=== PATIENT | male | born 1945 | race African-American/Black ===

== ENCOUNTER 2018-02-13 10:29 | Inpatient (IN) | payer BC, MEDICARE, OTHER ==
[~2018-02-13] VITALS: Ht 185.4 cm; Wt 79.7 kg
[~2018-02-13 10:29] MED LIST: AMLO10TA4 PO; ATEN25TA PO; HYDR-3972 PO; Hydralazine Hcl PO; ISOS30TA9 PO; SIMV20TA PO; SPIR25TA5 PO; TERA5CAP4 PO
[2018-02-13 11:23] LABS: BASOPHILS % (AUTO) 0.5 % (0-1); EOSINOPHILS # (AUTO) 0.3 X10'3 (0-0.9); EOSINOPHILS % (AUTO) 4.8 % (0-6); HEMOGLOBIN 8.5 g/dl (14.0-17.9); LYMPHOCYTES # (AUTO) 0.5 X10'3 (1.1-4.8); LYMPHOCYTES % (AUTO) 8.6 % (21-51); MEAN CORPUSCULAR HEMOGLOBIN 26.9 PG (27.0-31.0); MEAN CORPUSCULAR HGB CONC 32.5 % (33.0-36.5); MEAN CORPUSCULAR VOLUME 82.7 FL (78-98); MEAN PLATELET VOLUME 6.9 FL (7.4-10.4); MONOCYTES # (AUTO) 0.6 X10'3 (0-0.9); MONOCYTES % (AUTO) 10.5 % (2-12); NEUTROPHILS # (AUTO) 4.2 X10'3 (1.8-7.7); NEUTROPHILS % (AUTO) 75.6 % (42-75); PLATELET COUNT 170 X10'3 (140-440); RED BLOOD COUNT 3.15 X10'6 (4.70-6.10); WHITE BLOOD COUNT 5.5 X10'3 (4.5-11.0)
[2018-02-13 11:37] LABS: INR 1.1 INR; PARTIAL THROMBOPLASTIN TIME 29 SECONDS (22-32); PROTHROMBIN TIME 10.7 SECONDS (9.0-12.0)
[2018-02-13 11:38] LABS: ALANINE AMINOTRANSFERASE 11 U/L (12-78); ALBUMIN 3.6 G/DL (3.4-5.0); ALBUMIN/GLOBULIN RATIO 0.9 (1.1-1.5); ALKALINE PHOSPHATASE 61 IU/L (46-116); ANION GAP 15 (8-16); ASPARTATE AMINO TRANSFERASE 11 U/L (10-37); BILIRUBIN,TOTAL 0.2 MG/DL (0.1-1.0); BLOOD UREA NITROGEN 124 MG/DL (7-18); BUN/CREATININE RATIO 11.1 (5.4-32.0); CALCIUM 7.5 MG/DL (8.5-10.1); CHLORIDE 104 MMOL/L (99-107); CREATININE 11.18 MG/DL (0.60-1.10); GLUCOSE 100 MG/DL (70-104); SODIUM 134 MMOL/L (135-145); TOTAL CARBON DIOXIDE 15.1 MMOL/L (24-32); TOTAL PROTEIN 7.6 G/DL (6.4-8.2); eGFR 5 ML/MIN
[2018-02-13 11:39] LABS: POTASSIUM 6.2 MMOL/L (3.5-5.1)
[2018-02-13] MEDS ORDERED: calcium gluconate inj. 1 GM in normal saline 100ml IV soln 100 ML IV ONE (11:50)
[2018-02-13] MEDS ORDERED: sodium polystyrene sulfonate 15gm/60ml oral suspension PO ONE (11:50)
[2018-02-13] MEDS ORDERED: albuterol 2.5 MG/3 ML nebule CONTNEB PRN (12:35)
[2018-02-13] MEDS ORDERED: albuterol 2.5 MG/3 ML nebule NEB ONE (12:45)
[2018-02-13] MEDS ORDERED: morphine 4 MG/ML inj SYRINge IV PRN (13:55)
[2018-02-13] MEDS ORDERED: epoetin 20,000 units/ml inj IV ONE (13:55)
[2018-02-13] MEDS ORDERED: heparin 1,000 units/ml 10ml inj IV ONE (13:55)
[2018-02-13] MEDS ORDERED: magnesium hydroxide 30ml (MOM) UD suspension PO PRN (13:55)
[2018-02-13] MEDS ORDERED: ondansetron/PF 4mg/2ml inj IV PRN (13:55)
[2018-02-13] MEDS ORDERED: heparin 1,000unit/ml 10ml vial 10 ML IV ONE (13:55)
[2018-02-13] MEDS ORDERED: acetaminophen 325mg tablet PO PRN ×2 (13:55)
[2018-02-13] MEDS ORDERED: morphine 2 MG/ML inj. syringe IV PRN (13:55)
[2018-02-13] MEDS ORDERED: heparin 1,000 units/ml 10ml inj HE ONE (14:00)
[2018-02-13] MEDS: sodium bicarbonate (8.4%) inj. 150 MEQ in dextrose 5%-water 1,000 ML IV SCH (14:35)
[2018-02-13] MEDS ORDERED: HYDR-4069 PO (16:07)
[2018-02-13] MEDS ORDERED: CALC0.253 PO (16:27)
[2018-02-13] MEDS ORDERED: EPOE3000 SUBCUT (16:33)
[2018-02-13] MEDS ORDERED: CARV3.122 PO (16:33)
[2018-02-13] MEDS ORDERED: FERR325T28 PO (16:33)
[2018-02-13] MEDS ORDERED: SODI650T29 PO (17:40)
[2018-02-13] MEDS ORDERED: CALC667T5 PO (17:40)
[2018-02-13 19:00] VITALS: BP 187/92
[2018-02-13] MEDS: carVEDilol 3.125mg tablet PO SCH (22:57)
[2018-02-13 23:00] VITALS: BP 188/97
[2018-02-13 23:11] LABS: ALBUMIN 3.2 G/DL (3.4-5.0); ANION GAP 13 (8-16); BLOOD UREA NITROGEN 120 MG/DL (7-18); BUN/CREATININE RATIO 11.2 (5.4-32.0); CALCIUM 7.8 MG/DL (8.5-10.1); CHLORIDE 103 MMOL/L (99-107); CREATININE 10.71 MG/DL (0.60-1.10); GLUCOSE 109 MG/DL (70-104); POTASSIUM 5.4 MMOL/L (3.5-5.1); SODIUM 136 MMOL/L (135-145); TOTAL CARBON DIOXIDE 20.1 MMOL/L (24-32); eGFR 6 ML/MIN
[2018-02-13] MEDS: hydrALAZINE 25 MG tablet PO SCH (23:33)
[2018-02-14] VITALS (10 sets, daily range): BP systolic 153–199; BP diastolic 95–114
[2018-02-14 06:04] LABS: BASOPHILS % (AUTO) 0.8 % (0-1); EOSINOPHILS # (AUTO) 0.4 X10'3 (0-0.9); EOSINOPHILS % (AUTO) 6.3 % (0-6); HEMATOCRIT 24.7 % (42.0-52.0); HEMOGLOBIN 8.1 g/dl (14.0-17.9); LYMPHOCYTES # (AUTO) 0.5 X10'3 (1.1-4.8); LYMPHOCYTES % (AUTO) 9.6 % (21-51); MEAN CORPUSCULAR HEMOGLOBIN 26.9 PG (27.0-31.0); MEAN CORPUSCULAR HGB CONC 32.7 % (33.0-36.5); MEAN CORPUSCULAR VOLUME 82.3 FL (78-98); MEAN PLATELET VOLUME 7.2 FL (7.4-10.4); MONOCYTES # (AUTO) 0.7 X10'3 (0-0.9); MONOCYTES % (AUTO) 12.2 % (2-12); NEUTROPHILS % (AUTO) 71.1 % (42-75); PLATELET COUNT 161 X10'3 (140-440); RED CELL DISTRIBUTION WIDTH 15.4 % (11.5-14.5); WHITE BLOOD COUNT 5.7 X10'3 (4.5-11.0)
[2018-02-14 06:23] LABS: ALANINE AMINOTRANSFERASE 9 U/L (12-78); ALBUMIN 3.1 G/DL (3.4-5.0); ALBUMIN/GLOBULIN RATIO 0.8 (1.1-1.5); ALKALINE PHOSPHATASE 47 IU/L (46-116); ANION GAP 14 (8-16); ASPARTATE AMINO TRANSFERASE 11 U/L (10-37); BILIRUBIN,TOTAL 0.3 MG/DL (0.1-1.0); BLOOD UREA NITROGEN 119 MG/DL (7-18); BUN/CREATININE RATIO 11.4 (5.4-32.0); CALCIUM 7.4 MG/DL (8.5-10.1); CHLORIDE 103 MMOL/L (99-107); CREATININE 10.42 MG/DL (0.60-1.10); GLUCOSE 109 MG/DL (70-104); MAGNESIUM 1.5 MG/DL (1.5-2.4); PHOSPHORUS 6.5 MG/DL (2.3-4.5); POTASSIUM 5.3 MMOL/L (3.5-5.1); SODIUM 137 MMOL/L (135-145); TOTAL CARBON DIOXIDE 20.3 MMOL/L (24-32); TOTAL PROTEIN 6.8 G/DL (6.4-8.2); eGFR 6 ML/MIN
[2018-02-14] MEDS: pantoprazole 40mg Tablet.DR PO SCH (07:30)
[2018-02-14] MEDS: carVEDilol 3.125mg tablet PO SCH ×2 (07:33→19:04)
[2018-02-14] MEDS: ferrous sulfate 325mg tablet PO SCH (07:33)
[2018-02-14] MEDS: isosorbide dinitrate 30mg tablet PO SCH ×3 (07:33→19:03)
[2018-02-14] MEDS: calcium acetate 667mg (PhosLO) capsule PO SCH ×3 (07:33→18:40)
[2018-02-14] MEDS: hydrALAZINE 25 MG tablet PO SCH ×2 (07:35→16:16)
[2018-02-14] MEDS: sodium bicarbonate (8.4%) inj. 150 MEQ in dextrose 5%-water 1,000 ML IV SCH (07:52)
[2018-02-14] MEDS ORDERED: CALCIUM ACETATE PO SCH (08:00)
[2018-02-14] MEDS ORDERED: carVEDilol 3.125mg tablet PO SCH (08:00)
[2018-02-14] MEDS ORDERED: spironolactone 25 MG tablet PO SCH (08:00)
[2018-02-14] MEDS ORDERED: LIDOcaine 1%/PF 5ML 10 MG/ML VIAL SQ ONE (08:30)
[2018-02-14] MEDS ORDERED: fentaNYL/PF 50MCG/1 ML 2ML syringe IV PRN (08:30)
[2018-02-14] MEDS ORDERED: midazolam 2 mg/2 ml injection IV PRN (08:30)
[2018-02-14] MEDS ORDERED: heparin 1,000 units/ml 10ml inj HE ONE ×2 (08:30→16:00)
[2018-02-14] MEDS ORDERED: heparin 1,000 units/ml 10ml inj ICATH ONE (08:30)
[2018-02-14] MEDS ORDERED: heparin 1,000unit/ml 10ml vial 10 ML ONE (08:31)
[2018-02-14] MEDS ORDERED: LIDOcaine 1% (10mg/ml) 2ml vial ONE (08:31)
[2018-02-14] MEDS ORDERED: fentaNYL/PF 50MCG/1 ML 2ML syringe ONE (09:01)
[2018-02-14] MEDS ORDERED: midazolam 2 mg/2 ml injection ONE (09:01)
[2018-02-14] MEDS: calcitriol 0.25mcg capsule PO SCH (13:38)
[2018-02-14] MEDS ORDERED: heparin 1,000 units/ml 10ml inj IV ONE (16:00)
[2018-02-14] MEDS ORDERED: heparin 1,000unit/ml 10ml vial 10 ML IV ONE (16:00)
[2018-02-14] MEDS ORDERED: epoetin 20,000 units/ml inj IV ONE (16:00)
[2018-02-14] MEDS: terazosin 5mg capsule PO SCH (21:51)
[2018-02-15] MEDS: hydrALAZINE 25 MG tablet PO SCH ×4 (00:47→23:26)
[2018-02-15 03:00] VITALS: BP 150/93
[2018-02-15 05:16] LABS: BASOPHILS % (AUTO) 0.4 % (0-1); EOSINOPHILS # (AUTO) 0.3 X10'3 (0-0.9); EOSINOPHILS % (AUTO) 5.1 % (0-6); HEMOGLOBIN 8.6 g/dl (14.0-17.9); LYMPHOCYTES # (AUTO) 0.7 X10'3 (1.1-4.8); LYMPHOCYTES % (AUTO) 10.4 % (21-51); MEAN CORPUSCULAR HEMOGLOBIN 27.3 PG (27.0-31.0); MEAN CORPUSCULAR HGB CONC 33.1 % (33.0-36.5); MEAN CORPUSCULAR VOLUME 82.4 FL (78-98); MEAN PLATELET VOLUME 7.1 FL (7.4-10.4); MONOCYTES # (AUTO) 0.9 X10'3 (0-0.9); MONOCYTES % (AUTO) 14.2 % (2-12); NEUTROPHILS # (AUTO) 4.6 X10'3 (1.8-7.7); NEUTROPHILS % (AUTO) 69.9 % (42-75); PLATELET COUNT 160 X10'3 (140-440); RED BLOOD COUNT 3.16 X10'6 (4.70-6.10); WHITE BLOOD COUNT 6.6 X10'3 (4.5-11.0)
[2018-02-15 05:54] LABS: ALANINE AMINOTRANSFERASE 10 U/L (12-78); ALBUMIN 3.2 G/DL (3.4-5.0); ALBUMIN/GLOBULIN RATIO 0.8 (1.1-1.5); ALKALINE PHOSPHATASE 45 IU/L (46-116); ANION GAP 11 (8-16); ASPARTATE AMINO TRANSFERASE 12 U/L (10-37); BILIRUBIN,TOTAL 0.3 MG/DL (0.1-1.0); BLOOD UREA NITROGEN 72 MG/DL (7-18); BUN/CREATININE RATIO 9.4 (5.4-32.0); CALCIUM 7.8 MG/DL (8.5-10.1); CHLORIDE 98 MMOL/L (99-107); CREATININE 7.66 MG/DL (0.60-1.10); GLUCOSE 94 MG/DL (70-104); MAGNESIUM 1.5 MG/DL (1.5-2.4); PHOSPHORUS 4.7 MG/DL (2.3-4.5); POTASSIUM 4.9 MMOL/L (3.5-5.1); SODIUM 134 MMOL/L (135-145); TOTAL CARBON DIOXIDE 25.3 MMOL/L (24-32); eGFR 9 ML/MIN
[2018-02-15 06:00] VITALS: BP 164/100
[2018-02-15] MEDS: pantoprazole 40mg Tablet.DR PO SCH (08:13)
[2018-02-15] MEDS: calcium acetate 667mg (PhosLO) capsule PO SCH ×3 (08:14→18:00)
[2018-02-15] MEDS: carVEDilol 3.125mg tablet PO SCH ×2 (08:14→20:30)
[2018-02-15] MEDS: ferrous sulfate 325mg tablet PO SCH (08:14)
[2018-02-15] MEDS: calcitriol 0.25mcg capsule PO SCH (08:14)
[2018-02-15] MEDS: isosorbide dinitrate 30mg tablet PO SCH ×3 (08:14→20:30)
[2018-02-15] MEDS ORDERED: heparin 1,000unit/ml 10ml vial 10 ML IV ONE (09:01)
[2018-02-15] MEDS ORDERED: normal saline 1000ml 250 ML IV PRN (09:01)
[2018-02-15] MEDS ORDERED: heparin 1,000 units/ml 10ml inj HE ONE ×2 (09:05)
[2018-02-15 11:00] VITALS: BP 146/91
[2018-02-15 15:00] VITALS: BP 151/97
[2018-02-15 18:00] VITALS: BP 140/98
[2018-02-15] MEDS: terazosin 5mg capsule PO SCH (20:30)
[2018-02-15 22:00] VITALS: BP 131/96
[2018-02-16 02:00] VITALS: BP 140/86
[2018-02-16 05:46] LABS: BASOPHILS % (AUTO) 0.7 % (0-1); EOSINOPHILS # (AUTO) 0.5 X10'3 (0-0.9); HEMATOCRIT 26.4 % (42.0-52.0); HEMOGLOBIN 8.7 g/dl (14.0-17.9); LYMPHOCYTES # (AUTO) 0.7 X10'3 (1.1-4.8); LYMPHOCYTES % (AUTO) 11.1 % (21-51); MEAN CORPUSCULAR HEMOGLOBIN 27.4 PG (27.0-31.0); MEAN PLATELET VOLUME 7.1 FL (7.4-10.4); MONOCYTES # (AUTO) 1.1 X10'3 (0-0.9); MONOCYTES % (AUTO) 16.4 % (2-12); NEUTROPHILS # (AUTO) 4.3 X10'3 (1.8-7.7); NEUTROPHILS % (AUTO) 64.8 % (42-75); PLATELET COUNT 167 X10'3 (140-440); RED BLOOD COUNT 3.18 X10'6 (4.70-6.10); RED CELL DISTRIBUTION WIDTH 15.2 % (11.5-14.5); WHITE BLOOD COUNT 6.6 X10'3 (4.5-11.0)
[2018-02-16 06:00] VITALS: BP 140/88
[2018-02-16 06:18] LABS: ALANINE AMINOTRANSFERASE 10 U/L (12-78); ALBUMIN 3.2 G/DL (3.4-5.0); ALBUMIN/GLOBULIN RATIO 0.8 (1.1-1.5); ALKALINE PHOSPHATASE 54 IU/L (46-116); ANION GAP 9 (8-16); ASPARTATE AMINO TRANSFERASE 12 U/L (10-37); BILIRUBIN,TOTAL 0.3 MG/DL (0.1-1.0); BLOOD UREA NITROGEN 49 MG/DL (7-18); BUN/CREATININE RATIO 7.2 (5.4-32.0); CALCIUM 8.6 MG/DL (8.5-10.1); CHLORIDE 98 MMOL/L (99-107); CREATININE 6.77 MG/DL (0.60-1.10); GLUCOSE 98 MG/DL (70-104); MAGNESIUM 1.7 MG/DL (1.5-2.4); PHOSPHORUS 4.6 MG/DL (2.3-4.5); POTASSIUM 4.3 MMOL/L (3.5-5.1); SODIUM 134 MMOL/L (135-145); TOTAL CARBON DIOXIDE 26.9 MMOL/L (24-32); eGFR 10 ML/MIN
[2018-02-16] MEDS: carVEDilol 3.125mg tablet PO SCH (07:51)
[2018-02-16] MEDS: isosorbide dinitrate 30mg tablet PO SCH ×2 (07:51→13:23)
[2018-02-16] MEDS: calcium acetate 667mg (PhosLO) capsule PO SCH ×2 (07:51→13:23)
[2018-02-16] MEDS: pantoprazole 40mg Tablet.DR PO SCH (07:51)
[2018-02-16] MEDS: calcitriol 0.25mcg capsule PO SCH (07:51)
[2018-02-16] MEDS: hydrALAZINE 25 MG tablet PO SCH (07:51)
[2018-02-16] MEDS: ferrous sulfate 325mg tablet PO SCH (07:51)
[2018-02-16 09:08] LABS: HBSAG SCREEN Negative (Negative)
[2018-02-16 11:00] VITALS: BP 140/88
== END 2018-02-16 13:25 | disposition home or self-care (01) | DRG 675 ==
LOC: ER 10:29 → ED HOLD 13:55 → PCU 3S 16:45
PROVIDERS: ADMIT Internal Medicine Critical Care Medicine; ATTEND Internal Medicine Critical Care Medicine
PROC: 5A1D70Z Performance of Urinary Filtration, Intermittent, Less than 6 Hours Per Day (ICD-10-PCS; principal; 2018-02-14)
PROC: 0JH63XZ Insertion of Tunneled Vascular Access Device into Chest Subcutaneous Tissue and Fascia, Percutaneous Approach (ICD-10-PCS; 2018-02-14)
PROC: 02HV33Z Insertion of Infusion Device into Superior Vena Cava, Percutaneous Approach (ICD-10-PCS; 2018-02-14)
PROC: B518ZZA Fluoroscopy of Superior Vena Cava, Guidance (ICD-10-PCS; 2018-02-14)
PROC: B548ZZA Ultrasonography of Superior Vena Cava, Guidance (ICD-10-PCS; 2018-02-14)
PROC: 5A1D70Z Performance of Urinary Filtration, Intermittent, Less than 6 Hours Per Day (ICD-10-PCS; 2018-02-15)
DX: N18.6 End stage renal disease (principal); E87.5 Hyperkalemia; K74.60 Unspecified cirrhosis of liver; E78.5 Hyperlipidemia, unspecified; E83.51 Hypocalcemia; I49.9 Cardiac arrhythmia, unspecified; Z82.49 Family history of ischemic heart disease and other diseases of the circulatory system; Z99.2 Dependence on renal dialysis; Z86.19 Personal history of other infectious and parasitic diseases; Z88.8 Allergy status to other drugs, medicaments and biological substances; Z79.899 Other long term (current) drug therapy
CPT/HCPCS: 36415; 36558; 71045; 76937; 77001; 80048; 80053; 83735; 84100; 84484; 85025; 85610; 85730; 87040; 87070; 87340; 93005; 93930; 93970; 94640; 94760; 99152; 99153; A9270; C1750; C1894; G0257; G0378; J0610; J0885; J1644; J2150; J2250; J3010; J3490; J7030

== ENCOUNTER 2018-08-04 06:53 | Day surgery (SDC) | payer OTHER, MEDICARE ==
[~2018-08-04] VITALS: Ht 182.9 cm; Wt 85.3 kg
[~2018-08-04 06:53] MED LIST changes: -AMLO10TA4 PO; -ATEN25TA PO; +CALC0.253 PO; +CALC667T5 PO; +CARV3.122 PO; +FERR325T28 PO; -HYDR-3972 PO; +HYDR-4069 PO; -Hydralazine Hcl PO; -SIMV20TA PO; -SPIR25TA5 PO
[2018-08-04] MEDS ORDERED: LIDOcaine 1%/PF 5ML 10 MG/ML VIAL ONE (07:17)
[2018-08-04] MEDS ORDERED: SODI650T29 PO (07:36)
[2018-08-04] MEDS ORDERED: AMLO10TA PO (07:36)
[2018-08-04] MEDS ORDERED: MULTIVITAMIN PO (07:36)
[2018-08-04] MEDS ORDERED: CARV6.253 PO (07:36)
[2018-08-04] MEDS ORDERED: CALC667C5 PO (07:36)
[2018-08-04 09:25] VITALS: BP 142/87
[2018-08-04 09:30] VITALS: BP 148/88
[2018-08-04 10:00] VITALS: BP 148/88
[2018-08-04 10:41] VITALS: BP 138/97
== END 2018-08-04 10:00 | disposition home or self-care (01) ==
LOC: SSTAY O 06:53
PROVIDERS: ATTEND Radiology Diagnostic Radiology
DX: Z49.02 Encounter for fitting and adjustment of peritoneal dialysis catheter (principal); K74.60 Unspecified cirrhosis of liver; G47.30 Sleep apnea, unspecified; I12.9 Hypertensive chronic kidney disease with stage 1 through stage 4 chronic kidney disease, or unspecified chronic kidney disease; N18.9 Chronic kidney disease, unspecified; Z88.8 Allergy status to other drugs, medicaments and biological substances; Z86.19 Personal history of other infectious and parasitic diseases
CPT/HCPCS: 36589; J2001

== ENCOUNTER 2018-11-29 15:52 | Inpatient (IN) | payer MEDICARE, OTHER ==
[~2018-11-29] VITALS: Ht 182.9 cm; Wt 86.4 kg
[~2018-11-29 15:52] MED LIST changes: +AMLO10TA PO; +CALC667C5 PO; -CALC667T5 PO; -CARV3.122 PO; +CARV6.253 PO; +MULTIVITAMIN PO; +SODI650T29 PO
--- NOTE | 2018-11-29 16:09 | NUR ---
EKG 1552
[2018-11-29 16:35] LABS: BASOPHILS # (AUTO) 0.1 X10'3 (0-0.2); BASOPHILS % (AUTO) 0.9 % (0-1); EOSINOPHILS # (AUTO) 0.4 X10'3 (0-0.9); EOSINOPHILS % (AUTO) 4.5 % (0-6); HEMOGLOBIN 7.6 g/dl (14.0-17.9); LYMPHOCYTES # (AUTO) 0.9 X10'3 (1.1-4.8); MEAN CORPUSCULAR HEMOGLOBIN 29.4 PG (27.0-31.0); MEAN CORPUSCULAR HGB CONC 34.8 g/dL (33.0-36.5); MEAN CORPUSCULAR VOLUME 84.5 FL (78-98); MEAN PLATELET VOLUME 6.8 FL (7.4-10.4); MONOCYTES # (AUTO) 1.2 X10'3 (0-0.9); MONOCYTES % (AUTO) 13.7 % (2-12); NEUTROPHILS # (AUTO) 6.1 X10'3 (1.8-7.7); NEUTROPHILS % (AUTO) 70.9 % (42-75); PLATELET COUNT 186 X10'3 (140-440); RED BLOOD COUNT 2.59 X10'6 (4.70-6.10); RED CELL DISTRIBUTION WIDTH 16.6 % (11.5-14.5); WHITE BLOOD COUNT 8.6 X10'3 (4.5-11.0)
[2018-11-29 16:39] LABS: HEMATOCRIT 21.9 % (42.0-52.0)
[2018-11-29 16:49] LABS: ALANINE AMINOTRANSFERASE 22 U/L (12-78); ALBUMIN 2.8 G/DL (3.4-5.0); ALBUMIN/GLOBULIN RATIO 0.7 (1.1-1.5); ALKALINE PHOSPHATASE 65 IU/L (46-116); ANION GAP 12 (8-16); ASPARTATE AMINO TRANSFERASE 20 U/L (10-37); BILIRUBIN,TOTAL 0.4 MG/DL (0.1-1.0); BLOOD UREA NITROGEN 98 MG/DL (7-18); CHLORIDE 99 MMOL/L (99-107); GLUCOSE 121 MG/DL (70-104); POTASSIUM 4.2 MMOL/L (3.5-5.1); SODIUM 138 MMOL/L (135-145); TOTAL CARBON DIOXIDE 27.5 MMOL/L (24-32)
[2018-11-29 16:52] LABS: BUN/CREATININE RATIO 4.9 (5.4-32.0); eGFR 3 ML/MIN
[2018-11-29 16:53] LABS: CREATININE 20.02 MG/DL (0.60-1.10)
[2018-11-29 16:54] LABS: TROPONIN I < 0.04 NG/ML (0.0-0.05)
[2018-11-29] MEDS ORDERED: FURO80TA3 PO (18:19)
[2018-11-29] MEDS ORDERED: perit dialysis 13 & dext 2.5% 6,000 ML IP PRN (19:15)
[2018-11-29] MEDS ORDERED: acetaminophen 325mg tablet PO PRN (19:25)
[2018-11-29] MEDS ORDERED: ondansetron/PF 4mg/2ml inj IV PRN (19:25)
[2018-11-29 20:06] LABS: OCCULT BLOOD STOOL POSITIVE (Neg)
[2018-11-29] MEDS: isosorbide dinitrate 30mg tablet PO SCH (20:23)
[2018-11-29] MEDS: calcium acetate 667mg (PhosLO) capsule PO SCH ×2 (20:23→20:58)
[2018-11-29] MEDS: heparin, porcine 5000 units/ml vial SQ SCH (20:24)
[2018-11-29] MEDS: carvedilol 6.25mg tablet PO SCH (20:24)
[2018-11-30 03:00] VITALS: BP 169/58
[2018-11-30] MEDS: hydrALAZINE 25 MG tablet PO SCH ×4 (04:27→23:45)
[2018-11-30 06:00] VITALS: BP 147/91
[2018-11-30 06:09] LABS: BASOPHILS # (AUTO) 0.1 X10'3 (0-0.2); BASOPHILS % (AUTO) 1.1 % (0-1); EOSINOPHILS # (AUTO) 0.4 X10'3 (0-0.9); EOSINOPHILS % (AUTO) 4.7 % (0-6); HEMATOCRIT 23.3 % (42.0-52.0); LYMPHOCYTES % (AUTO) 11.9 % (21-51); MEAN CORPUSCULAR HEMOGLOBIN 28.5 PG (27.0-31.0); MEAN CORPUSCULAR HGB CONC 34.2 g/dL (33.0-36.5); MEAN CORPUSCULAR VOLUME 83.5 FL (78-98); MEAN PLATELET VOLUME 6.7 FL (7.4-10.4); MONOCYTES # (AUTO) 1.2 X10'3 (0-0.9); NEUTROPHILS # (AUTO) 5.9 X10'3 (1.8-7.7); NEUTROPHILS % (AUTO) 68.3 % (42-75); PLATELET COUNT 197 X10'3 (140-440); RED BLOOD COUNT 2.79 X10'6 (4.70-6.10); WHITE BLOOD COUNT 8.6 X10'3 (4.5-11.0)
[2018-11-30 06:22] LABS: ALANINE AMINOTRANSFERASE 22 U/L (12-78); ALBUMIN 2.8 G/DL (3.4-5.0); ALBUMIN/GLOBULIN RATIO 0.7 (1.1-1.5); ALKALINE PHOSPHATASE 62 IU/L (46-116); ANION GAP 14 (8-16); ASPARTATE AMINO TRANSFERASE 18 U/L (10-37); BILIRUBIN,TOTAL 0.4 MG/DL (0.1-1.0); BLOOD UREA NITROGEN 95 MG/DL (7-18); BUN/CREATININE RATIO 4.8 (5.4-32.0); CALCIUM 8.4 MG/DL (8.5-10.1); CHLORIDE 99 MMOL/L (99-107); CREATININE 19.99 MG/DL (0.60-1.10); GLUCOSE 113 MG/DL (70-104); MAGNESIUM 2.3 MG/DL (1.5-2.4); PHOSPHORUS 5.7 MG/DL (2.3-4.5); POTASSIUM 3.9 MMOL/L (3.5-5.1); SODIUM 140 MMOL/L (135-145); TOTAL CARBON DIOXIDE 26.8 MMOL/L (24-32); TOTAL PROTEIN 7.1 G/DL (6.4-8.2); eGFR 3 ML/MIN
[2018-11-30 07:46] LABS: ANISOCYTOSIS 1+; NUCLEATED RED BLOOD CELLS 1 /100WBC (0-0); PLATELET ESTIMATE NORMAL; TOTAL CELLS COUNTED 100
[2018-11-30 07:47] LABS: POIKILOCYTOSIS 1+; POLYCHROMASIA 1+
[2018-11-30] MEDS ORDERED: [UNRECOGNIZED DRUG - OTHER] PO SCH (08:00)
[2018-11-30] MEDS ORDERED: non-formulary drug (Amlodipine Besylate 1 TABLET) PO SCH (08:00)
[2018-11-30] MEDS: furosemide 40mg tablet PO SCH (10:01)
[2018-11-30] MEDS: heparin, porcine 5000 units/ml vial SQ SCH ×2 (10:02→20:06)
[2018-11-30] MEDS: amLODIPine 5mg tablet PO SCH (10:02)
[2018-11-30] MEDS: carvedilol 6.25mg tablet PO SCH ×2 (10:02→20:06)
[2018-11-30] MEDS: folic acid/vitamin B complex w/vitamin C 0.8mg tablet PO SCH (10:02)
[2018-11-30] MEDS: calcium acetate 667mg (PhosLO) capsule PO SCH ×3 (10:02→20:06)
[2018-11-30] MEDS: isosorbide dinitrate 30mg tablet PO SCH ×3 (10:04→20:06)
[2018-11-30 11:00] VITALS: BP 128/78
[2018-11-30] MEDS: JUVEN Shake w/Arg/Glut/Ca2+Bmb (Juven 19.3gm) pkt 240ml PO SCH ×2 (13:00→18:00)
[2018-11-30] MEDS ORDERED: HEPARIN IP PRN (14:36)
[2018-11-30] MEDS ORDERED: PERIT DIALYSIS IP PRN (14:36)
[2018-11-30] MEDS ORDERED: DEXT IP PRN (14:36)
[2018-11-30] MEDS ORDERED: perit dialysis 13 & dext 2.5% 6,000 ML IP PRN (14:40)
[2018-11-30 15:00] VITALS: BP 116/72
[2018-11-30 18:00] VITALS: BP 123/76
--- NOTE | 2018-11-30 18:30 | NUR ---
Patient in room PCU 3020. I have received report from Georgina MANCINI and had the opportunity to ask questions and assume patient care.
[2018-11-30 22:00] VITALS: BP 146/88
[2018-12-01 02:00] VITALS: BP 132/65
[2018-12-01 06:00] VITALS: BP 144/87
[2018-12-01 06:12] LABS: BASOPHILS # (AUTO) 0.1 X10'3 (0-0.2); BASOPHILS % (AUTO) 0.9 % (0-1); EOSINOPHILS # (AUTO) 0.3 X10'3 (0-0.9); EOSINOPHILS % (AUTO) 3.8 % (0-6); HEMATOCRIT 23.5 % (42.0-52.0); HEMOGLOBIN 7.9 g/dl (14.0-17.9); LYMPHOCYTES # (AUTO) 1.2 X10'3 (1.1-4.8); LYMPHOCYTES % (AUTO) 13.4 % (21-51); MEAN CORPUSCULAR HEMOGLOBIN 28.5 PG (27.0-31.0); MEAN CORPUSCULAR HGB CONC 33.8 g/dL (33.0-36.5); MEAN CORPUSCULAR VOLUME 84.3 FL (78-98); MEAN PLATELET VOLUME 6.9 FL (7.4-10.4); MONOCYTES # (AUTO) 1.2 X10'3 (0-0.9); MONOCYTES % (AUTO) 13.4 % (2-12); NEUTROPHILS # (AUTO) 6.1 X10'3 (1.8-7.7); NEUTROPHILS % (AUTO) 68.5 % (42-75); PLATELET COUNT 192 X10'3 (140-440); RED BLOOD COUNT 2.78 X10'6 (4.70-6.10); WHITE BLOOD COUNT 8.9 X10'3 (4.5-11.0)
[2018-12-01 06:15] LABS: ALANINE AMINOTRANSFERASE 20 U/L (12-78); ALBUMIN 2.6 G/DL (3.4-5.0); ALBUMIN/GLOBULIN RATIO 0.6 (1.1-1.5); ALKALINE PHOSPHATASE 61 IU/L (46-116); ANION GAP 15 (8-16); ASPARTATE AMINO TRANSFERASE 19 U/L (10-37); BILIRUBIN,TOTAL 0.4 MG/DL (0.1-1.0); BLOOD UREA NITROGEN 96 MG/DL (7-18); BUN/CREATININE RATIO 4.9 (5.4-32.0); CALCIUM 8.6 MG/DL (8.5-10.1); CHLORIDE 99 MMOL/L (99-107); CREATININE 19.69 MG/DL (0.60-1.10); GLUCOSE 112 MG/DL (70-104); MAGNESIUM 2.2 MG/DL (1.5-2.4); PHOSPHORUS 6.4 MG/DL (2.3-4.5); POTASSIUM 3.8 MMOL/L (3.5-5.1); SODIUM 140 MMOL/L (135-145); TOTAL CARBON DIOXIDE 26.4 MMOL/L (24-32); TOTAL PROTEIN 6.8 G/DL (6.4-8.2); eGFR 3 ML/MIN
--- NOTE | 2018-12-01 06:24 | NUR ---
Problems reprioritized. Patient report given, questions answered & plan of care reviewed with Clau MANCINI.
--- NOTE | 2018-12-01 06:36 | NUR ---
Patient in room PCU 3020. I have received report from Xi MANCINI and had the opportunity to ask questions and assume patient care. Pt is in bed sleeping, all needs met at this time.
[2018-12-01] MEDS: JUVEN Shake w/Arg/Glut/Ca2+Bmb (Juven 19.3gm) pkt 240ml PO SCH ×2 (08:00→13:00)
[2018-12-01] MEDS: calcium acetate 667mg (PhosLO) capsule PO SCH ×2 (08:00→12:47)
[2018-12-01] MEDS: amLODIPine 5mg tablet PO SCH (08:00)
[2018-12-01] MEDS: carvedilol 6.25mg tablet PO SCH (08:01)
[2018-12-01] MEDS: folic acid/vitamin B complex w/vitamin C 0.8mg tablet PO SCH (08:01)
[2018-12-01] MEDS: isosorbide dinitrate 30mg tablet PO SCH ×2 (08:01→12:47)
[2018-12-01] MEDS: furosemide 40mg tablet PO SCH (08:01)
[2018-12-01] MEDS: hydrALAZINE 25 MG tablet PO SCH ×2 (08:01→16:17)
[2018-12-01] MEDS: heparin, porcine 5000 units/ml vial SQ SCH (08:02)
[2018-12-01 11:00] VITALS: BP 126/71
[2018-12-01 13:18] LABS: % IRON SATURATION 49 % (11-46); IRON 89 UG/DL (53-167); TOTAL IRON BINDING CAPACITY 182 UG/DL (259-388)
[2018-12-01 13:45] LABS: FERRITIN 719 NG/ML (26-388)
[2018-12-01 15:00] VITALS: BP 130/78
[2018-12-01] MEDS ORDERED: PANT-47 PO (15:52)
--- NOTE | 2018-12-01 17:03 | NUR ---
Pt is stable for d/c per md orders, discharge instructions reviewed with Patient, all questions answered, printed prescription for new medication signed by MD given to pt so he can get refilled at the NH, all home medication from pharmacy returned to pt, PIV d/c'ed and clean dry dressing in place, pt has discharged to home @ 1450, walked down with staff member, pt will be driving self home, all belongings with pt at time of discharge. Addendum: 12/01/18 at 1710 by Mele Garcia RN Correction to time: PT discharged @1650
== END 2018-12-01 16:53 | disposition home or self-care (01) | DRG 682 ==
LOC: ER 15:52 → UNDOADMIN 11-30 02:59 → PCU 3S 11-30 02:59
PROVIDERS: ATTEND Internal Medicine Critical Care Medicine
PROC: 5A1D70Z Performance of Urinary Filtration, Intermittent, Less than 6 Hours Per Day (ICD-10-PCS; principal; 2018-11-29)
PROC: 5A1D70Z Performance of Urinary Filtration, Intermittent, Less than 6 Hours Per Day (ICD-10-PCS; 2018-11-30)
DX: I12.0 Hypertensive chronic kidney disease with stage 5 chronic kidney disease or end stage renal disease (principal); N18.6 End stage renal disease; D64.9 Anemia, unspecified; R19.5 Other fecal abnormalities; B19.20 Unspecified viral hepatitis C without hepatic coma; K74.60 Unspecified cirrhosis of liver; Z99.2 Dependence on renal dialysis; Z88.8 Allergy status to other drugs, medicaments and biological substances
CPT/HCPCS: 36415; 80053; 82272; 82728; 83540; 83550; 83735; 84100; 84484; 85025; 86885; 86900; 86901; 87081; 90935; 93005; 99285; E1594; G0257; G0378; J1644

== ENCOUNTER 2018-12-01 18:27 | Inpatient (IN) | payer MEDICARE, OTHER ==
[~2018-12-01] VITALS: Ht 182.9 cm; Wt 89.3 kg
[~2018-12-01 18:27] MED LIST changes: +FURO80TA3 PO; +PANT-47 PO
--- NOTE | 2018-12-01 18:46 | NUR ---
Dr Rivas notified of how sad the patient appears to me.
[2018-12-01 19:28] LABS: BASOPHILS # (AUTO) 0.1 X10'3 (0-0.2); BASOPHILS % (AUTO) 0.9 % (0-1); EOSINOPHILS # (AUTO) 0.4 X10'3 (0-0.9); HEMATOCRIT 22.5 % (42.0-52.0); HEMOGLOBIN 7.4 g/dl (14.0-17.9); LYMPHOCYTES # (AUTO) 0.9 X10'3 (1.1-4.8); LYMPHOCYTES % (AUTO) 9.9 % (21-51); MEAN CORPUSCULAR HEMOGLOBIN 28.1 PG (27.0-31.0); MEAN CORPUSCULAR HGB CONC 33.1 g/dL (33.0-36.5); MEAN PLATELET VOLUME 7.1 FL (7.4-10.4); MONOCYTES # (AUTO) 1.2 X10'3 (0-0.9); MONOCYTES % (AUTO) 12.5 % (2-12); NEUTROPHILS # (AUTO) 6.9 X10'3 (1.8-7.7); NEUTROPHILS % (AUTO) 72.7 % (42-75); PLATELET COUNT 197 X10'3 (140-440); RED BLOOD COUNT 2.64 X10'6 (4.70-6.10); RED CELL DISTRIBUTION WIDTH 16.3 % (11.5-14.5); WHITE BLOOD COUNT 9.4 X10'3 (4.5-11.0)
[2018-12-01 19:38] LABS: ALANINE AMINOTRANSFERASE 19 U/L (12-78); ALBUMIN 2.6 G/DL (3.4-5.0); ALBUMIN/GLOBULIN RATIO 0.6 (1.1-1.5); ALKALINE PHOSPHATASE 63 IU/L (46-116); ANION GAP 12 (8-16); ASPARTATE AMINO TRANSFERASE 21 U/L (10-37); BILIRUBIN,TOTAL 0.4 MG/DL (0.1-1.0); BLOOD UREA NITROGEN 104 MG/DL (7-18); CALCIUM 8.3 MG/DL (8.5-10.1); CHLORIDE 97 MMOL/L (99-107); GLUCOSE 140 MG/DL (70-104); POTASSIUM 4.2 MMOL/L (3.5-5.1); SODIUM 136 MMOL/L (135-145); TOTAL CARBON DIOXIDE 26.7 MMOL/L (24-32); TOTAL PROTEIN 6.7 G/DL (6.4-8.2)
[2018-12-01 19:42] LABS: BUN/CREATININE RATIO 5.1 (5.4-32.0); CREATININE 20.55 MG/DL (0.60-1.10); eGFR 3 ML/MIN
[2018-12-01 20:34] LABS: TOTAL CELLS COUNTED 100
[2018-12-01 20:35] LABS: BANDS% (MANUAL) 1 % (0-10); LYMPHOCYTES % (MANUAL) 9 % (21-51); NEUTROPHILS % (MANUAL) 79 % (42-75)
[2018-12-01 20:36] LABS: ANISOCYTOSIS 1+; BASOPHILS % (MANUAL) 1 % (0-1); EOSINOPHILS % (MANUAL) 1 % (0-6); METAMYLEOCYTES% (MANUAL) 2 % (0-0); MONOCYTES % (MANUAL) 7 % (2-12); NUCLEATED RED BLOOD CELLS 1 /100WBC (0-0); PLATELET ESTIMATE NORMAL
[2018-12-01 20:37] LABS: SCHISTOCYTES FEW
[2018-12-01] MEDS ORDERED: acetaminophen 325mg tablet PO PRN (21:25)
[2018-12-01] MEDS ORDERED: ondansetron/PF 4mg/2ml inj IV PRN (21:25)
--- NOTE | 2018-12-01 22:12 | NUR ---
Received report from [employer] policy specialist. Patient to follow shortly.
--- NOTE | 2018-12-01 22:39 | NUR ---
Patient arrived to floor around 2229. A&o, able to transfer self from [facility] to bed. Denies having any chest pain,SOB, nausea /vomiting. Patient currently eating a sandwich. Bed is low/locked and side rails up.
[2018-12-02] VITALS: BP 175/91
[2018-12-02] MEDS: hydrALAZINE 25 MG tablet PO SCH ×3 (00:31→17:15)
[2018-12-02 03:20] VITALS: BP 138/76
[2018-12-02 05:24] LABS: BASOPHILS # (AUTO) 0.1 X10'3 (0-0.2); BASOPHILS % (AUTO) 0.7 % (0-1); EOSINOPHILS # (AUTO) 0.4 X10'3 (0-0.9); EOSINOPHILS % (AUTO) 3.7 % (0-6); HEMOGLOBIN 7.5 g/dl (14.0-17.9); LYMPHOCYTES # (AUTO) 1.4 X10'3 (1.1-4.8); LYMPHOCYTES % (AUTO) 13.6 % (21-51); MEAN CORPUSCULAR HEMOGLOBIN 28.5 PG (27.0-31.0); MEAN CORPUSCULAR HGB CONC 34.2 g/dL (33.0-36.5); MEAN CORPUSCULAR VOLUME 83.5 FL (78-98); MEAN PLATELET VOLUME 6.6 FL (7.4-10.4); MONOCYTES # (AUTO) 1.4 X10'3 (0-0.9); MONOCYTES % (AUTO) 13.5 % (2-12); NEUTROPHILS # (AUTO) 6.8 X10'3 (1.8-7.7); NEUTROPHILS % (AUTO) 68.5 % (42-75); PLATELET COUNT 194 X10'3 (140-440); RED BLOOD COUNT 2.62 X10'6 (4.70-6.10); RED CELL DISTRIBUTION WIDTH 16.5 % (11.5-14.5)
[2018-12-02 05:28] LABS: ALANINE AMINOTRANSFERASE 19 U/L (12-78); ALBUMIN 2.6 G/DL (3.4-5.0); ALBUMIN/GLOBULIN RATIO 0.7 (1.1-1.5); ALKALINE PHOSPHATASE 63 IU/L (46-116); ANION GAP 15 (8-16); ASPARTATE AMINO TRANSFERASE 16 U/L (10-37); BILIRUBIN,TOTAL 0.4 MG/DL (0.1-1.0); BLOOD UREA NITROGEN 109 MG/DL (7-18); BUN/CREATININE RATIO 5.2 (5.4-32.0); CHLORIDE 98 MMOL/L (99-107); CREATININE 20.96 MG/DL (0.60-1.10); GLUCOSE 95 MG/DL (70-104); MAGNESIUM 2.2 MG/DL (1.5-2.4); POTASSIUM 4.1 MMOL/L (3.5-5.1); SODIUM 137 MMOL/L (135-145); TOTAL CARBON DIOXIDE 24.1 MMOL/L (24-32); TOTAL PROTEIN 6.4 G/DL (6.4-8.2); eGFR 3 ML/MIN
[2018-12-02 05:36] LABS: HEMATOCRIT 21.9 % (42.0-52.0)
--- NOTE | 2018-12-02 05:49 | NUR ---
Lab called with critical H&H of 7.5 and 21.9 yesterdays was 7.4and 22.5. No new orders.
--- NOTE | 2018-12-02 06:43 | NUR ---
Problems reprioritized. Patient report given, questions answered & plan of care reviewed with Georgina MANCINI.
[2018-12-02 06:58] VITALS: BP 156/84
[2018-12-02 07:24] LABS: ANISOCYTOSIS 1+; NUCLEATED RED BLOOD CELLS 1 /100WBC (0-0); PLATELET ESTIMATE NORMAL; POLYCHROMASIA 1+; TOTAL CELLS COUNTED 100
[2018-12-02 07:25] LABS: HYPOCHROMASIA 1+; SCHISTOCYTES FEW
[2018-12-02] MEDS: pantoprazole 40mg Tablet.DR PO SCH ×2 (09:04→19:54)
[2018-12-02] MEDS: calcium acetate 667mg (PhosLO) capsule PO SCH ×3 (09:04→21:21)
[2018-12-02] MEDS: isosorbide dinitrate 30mg tablet PO SCH ×3 (09:04→21:21)
[2018-12-02] MEDS: amLODIPine 5mg tablet PO SCH (09:04)
[2018-12-02] MEDS: furosemide 40mg tablet PO SCH (09:04)
[2018-12-02] MEDS: carvedilol 6.25mg tablet PO SCH ×2 (09:04→21:21)
[2018-12-02] MEDS: folic acid/vitamin B complex w/vitamin C 0.8mg tablet PO SCH (09:07)
[2018-12-02 11:00] VITALS: BP 118/82
[2018-12-02] MEDS ORDERED: PEG 3350/Na sulf,bicarb,Cl/KCl oral sol 4 liter bottle PO ONE (15:45)
[2018-12-02 18:00] VITALS: BP 169/92
--- NOTE | 2018-12-02 18:24 | NUR ---
Patient in room EZRA 351. I have received report from ADDIS Erickson and had the opportunity to ask questions and assume patient care.
[2018-12-03] VITALS (14 sets, daily range): BP systolic 135–159; BP diastolic 74–107
[2018-12-03] MEDS: hydrALAZINE 25 MG tablet PO SCH ×3 (00:08→16:00)
[2018-12-03 04:47] LABS: BASOPHILS # (AUTO) 0.1 X10'3 (0-0.2); BASOPHILS % (AUTO) 0.8 % (0-1); EOSINOPHILS # (AUTO) 0.3 X10'3 (0-0.9); EOSINOPHILS % (AUTO) 3.9 % (0-6); HEMATOCRIT 22.1 % (42.0-52.0); HEMOGLOBIN 7.4 g/dl (14.0-17.9); LYMPHOCYTES # (AUTO) 1.1 X10'3 (1.1-4.8); LYMPHOCYTES % (AUTO) 13.2 % (21-51); MEAN CORPUSCULAR HEMOGLOBIN 28.4 PG (27.0-31.0); MEAN CORPUSCULAR HGB CONC 33.7 g/dL (33.0-36.5); MEAN CORPUSCULAR VOLUME 84.1 FL (78-98); MEAN PLATELET VOLUME 6.5 FL (7.4-10.4); MONOCYTES # (AUTO) 1.2 X10'3 (0-0.9); MONOCYTES % (AUTO) 14.2 % (2-12); NEUTROPHILS # (AUTO) 5.7 X10'3 (1.8-7.7); NEUTROPHILS % (AUTO) 67.9 % (42-75); PLATELET COUNT 195 X10'3 (140-440); RED BLOOD COUNT 2.62 X10'6 (4.70-6.10); RED CELL DISTRIBUTION WIDTH 16.4 % (11.5-14.5); WHITE BLOOD COUNT 8.4 X10'3 (4.5-11.0)
[2018-12-03 05:54] LABS: ALANINE AMINOTRANSFERASE 20 U/L (12-78); ALBUMIN 2.7 G/DL (3.4-5.0); ALBUMIN/GLOBULIN RATIO 0.7 (1.1-1.5); ANION GAP 16 (8-16); ASPARTATE AMINO TRANSFERASE 20 U/L (10-37); BILIRUBIN,TOTAL 0.4 MG/DL (0.1-1.0); BLOOD UREA NITROGEN 99 MG/DL (7-18); CALCIUM 8.2 MG/DL (8.5-10.1); CHLORIDE 97 MMOL/L (99-107); GLUCOSE 101 MG/DL (70-104); PHOSPHORUS 6.3 MG/DL (2.3-4.5); POTASSIUM 3.9 MMOL/L (3.5-5.1); SODIUM 137 MMOL/L (135-145); TOTAL CARBON DIOXIDE 23.7 MMOL/L (24-32); TOTAL PROTEIN 6.7 G/DL (6.4-8.2)
[2018-12-03 06:05] LABS: ALKALINE PHOSPHATASE 47 IU/L (46-116)
[2018-12-03 06:07] LABS: BUN/CREATININE RATIO 4.7 (5.4-32.0); CREATININE 20.96 MG/DL (0.60-1.10); eGFR 3 ML/MIN
--- NOTE | 2018-12-03 06:09 | NUR ---
Problems reprioritized. Patient report given, questions answered & plan of care reviewed with ADDIS Palacios.
--- NOTE | 2018-12-03 06:43 | NUR ---
Patient in room EZRA 351. I have received report from Grady MANCINI and had the opportunity to ask questions and assume patient care.
[2018-12-03] MEDS: calcium acetate 667mg (PhosLO) capsule PO SCH ×3 (08:00→21:33)
[2018-12-03] MEDS: carvedilol 6.25mg tablet PO SCH ×2 (08:17→21:33)
[2018-12-03] MEDS: isosorbide dinitrate 30mg tablet PO SCH ×3 (08:17→21:33)
[2018-12-03] MEDS: furosemide 40mg tablet PO SCH (08:17)
[2018-12-03] MEDS: folic acid/vitamin B complex w/vitamin C 0.8mg tablet PO SCH (08:17)
[2018-12-03] MEDS: amLODIPine 5mg tablet PO SCH (08:18)
[2018-12-03] MEDS: pantoprazole 40mg Tablet.DR PO SCH ×2 (08:18→21:33)
--- NOTE | 2018-12-03 18:09 | NUR ---
patient very frustrated has been waiting all day for GI procedure, several call made x2 to GI lab. Not on Premesis yet. patient informed.Patient stated much frustration over waiting . Report given to Grady MANCINI
--- NOTE | 2018-12-03 18:09 | NUR ---
Patient in room EZRA 351. I have received report from ADDIS Palacios and had the opportunity to ask questions and assume patient care.
[2018-12-03] MEDS ORDERED: MIDAZolam 5mg/5ml vial ONE (18:18)
[2018-12-03] MEDS ORDERED: fentaNYL/PF 50MCG/1 ML 2ML syringe ONE (18:18)
[2018-12-03] MEDS ORDERED: LIDOcaine Viscous 15ml cup ONE (18:18)
--- NOTE | 2018-12-03 18:48 | NUR ---
pt to GI lab
[2018-12-04] VITALS: BP 152/89
[2018-12-04] MEDS: hydrALAZINE 25 MG tablet PO SCH ×2 (00:16→08:15)
[2018-12-04 06:14] LABS: BASOPHILS # (AUTO) 0.1 X10'3 (0-0.2); BASOPHILS % (AUTO) 0.9 % (0-1); EOSINOPHILS # (AUTO) 0.3 X10'3 (0-0.9); EOSINOPHILS % (AUTO) 3.8 % (0-6); HEMOGLOBIN 7.2 g/dl (14.0-17.9); LYMPHOCYTES # (AUTO) 1.1 X10'3 (1.1-4.8); LYMPHOCYTES % (AUTO) 14.6 % (21-51); MEAN CORPUSCULAR HEMOGLOBIN 28.6 PG (27.0-31.0); MEAN CORPUSCULAR HGB CONC 34.2 g/dL (33.0-36.5); MEAN CORPUSCULAR VOLUME 83.8 FL (78-98); MEAN PLATELET VOLUME 6.5 FL (7.4-10.4); MONOCYTES # (AUTO) 1.1 X10'3 (0-0.9); MONOCYTES % (AUTO) 14.7 % (2-12); NEUTROPHILS # (AUTO) 4.8 X10'3 (1.8-7.7); PLATELET COUNT 188 X10'3 (140-440); RED BLOOD COUNT 2.53 X10'6 (4.70-6.10); RED CELL DISTRIBUTION WIDTH 16.5 % (11.5-14.5); WHITE BLOOD COUNT 7.3 X10'3 (4.5-11.0)
[2018-12-04 06:18] LABS: HEMATOCRIT 21.2 % (42.0-52.0)
[2018-12-04 06:28] LABS: ALANINE AMINOTRANSFERASE 20 U/L (12-78); ALBUMIN 2.5 G/DL (3.4-5.0); ALBUMIN/GLOBULIN RATIO 0.6 (1.1-1.5); ALKALINE PHOSPHATASE 51 IU/L (46-116); ANION GAP 17 (8-16); ASPARTATE AMINO TRANSFERASE 20 U/L (10-37); BILIRUBIN,TOTAL 0.4 MG/DL (0.1-1.0); BLOOD UREA NITROGEN 90 MG/DL (7-18); BUN/CREATININE RATIO 4.5 (5.4-32.0); CALCIUM 7.8 MG/DL (8.5-10.1); CHLORIDE 98 MMOL/L (99-107); CREATININE 19.86 MG/DL (0.60-1.10); GLUCOSE 96 MG/DL (70-104); PHOSPHORUS 6.1 MG/DL (2.3-4.5); POTASSIUM 3.7 MMOL/L (3.5-5.1); SODIUM 142 MMOL/L (135-145); TOTAL CARBON DIOXIDE 27.3 MMOL/L (24-32); TOTAL PROTEIN 6.4 G/DL (6.4-8.2); eGFR 3 ML/MIN
--- NOTE | 2018-12-04 06:29 | NUR ---
Patient in room EZRA 351. I have received report from Grady MANCINI and had the opportunity to ask questions and assume patient care.
--- NOTE | 2018-12-04 06:36 | NUR ---
Problems reprioritized. Patient report given, questions answered & plan of care reviewed with ADDIS Palacios.
[2018-12-04 07:00] VITALS: BP 153/85
[2018-12-04] MEDS: calcium acetate 667mg (PhosLO) capsule PO SCH ×2 (08:12→13:07)
[2018-12-04] MEDS: folic acid/vitamin B complex w/vitamin C 0.8mg tablet PO SCH (08:14)
[2018-12-04] MEDS: furosemide 40mg tablet PO SCH (08:14)
[2018-12-04] MEDS: amLODIPine 5mg tablet PO SCH (08:14)
[2018-12-04] MEDS: isosorbide dinitrate 30mg tablet PO SCH ×2 (08:14→13:07)
[2018-12-04] MEDS: pantoprazole 40mg Tablet.DR PO SCH (08:15)
[2018-12-04] MEDS: carvedilol 6.25mg tablet PO SCH (08:15)
[2018-12-04 08:31] LABS: NUCLEATED RED BLOOD CELLS 1 /100WBC (0-0); PLATELET ESTIMATE NORMAL; TOTAL CELLS COUNTED 100
[2018-12-04 08:32] LABS: HYPOCHROMASIA 1+; POLYCHROMASIA FEW
[2018-12-04] MEDS ORDERED: epoetin 20,000 units/ml inj SQ SCH (09:25)
[2018-12-04 11:30] VITALS: BP 144/79
--- NOTE | 2018-12-04 15:54 | NUR ---
patient continued with peritoneal dialysis into morning shift, site very positional with drainage. Seen by Dr Bullock, is for discharge awaiting ride. ALl Dc instructions given to patient .
--- NOTE | 2018-12-04 16:06 | NUR ---
patient was instructed to put light on when his ride got here, but patient left with ride without telling staff, and left his DC folder. litigation legal secretary Eloisa will call to inform him that he left his folder.
[2018-12-05] MEDS ORDERED: NUT.TX.IMP.RENAL FXN,LAC-REDUC (Nepro) 237 ML VANILLA PO SCH (07:30)
== END 2018-12-04 16:00 | disposition home or self-care (01) | DRG 811 ==
LOC: ER 18:27 → SUR 3N 22:20 → CMPBEDREQ 22:35 → SUR 3N 12-02 16:57
PROVIDERS: ADMIT Internal Medicine Critical Care Medicine; ATTEND Internal Medicine Critical Care Medicine
PROC: 3E1M39Z Irrigation of Peritoneal Cavity using Dialysate, Percutaneous Approach (ICD-10-PCS; 2018-12-02)
PROC: 0DB48ZX Excision of Esophagogastric Junction, Via Natural or Artificial Opening Endoscopic, Diagnostic (ICD-10-PCS; principal; 2018-12-03)
PROC: 0DB68ZX Excision of Stomach, Via Natural or Artificial Opening Endoscopic, Diagnostic (ICD-10-PCS; 2018-12-03)
PROC: 0DJD8ZZ Inspection of Lower Intestinal Tract, Via Natural or Artificial Opening Endoscopic (ICD-10-PCS; 2018-12-03)
PROC: 3E1M39Z Irrigation of Peritoneal Cavity using Dialysate, Percutaneous Approach (ICD-10-PCS; 2018-12-03)
DX: D50.9 Iron deficiency anemia, unspecified (principal); N18.6 End stage renal disease; I12.0 Hypertensive chronic kidney disease with stage 5 chronic kidney disease or end stage renal disease; K74.60 Unspecified cirrhosis of liver; B19.20 Unspecified viral hepatitis C without hepatic coma; K29.70 Gastritis, unspecified, without bleeding; K22.2 Esophageal obstruction; K57.30 Diverticulosis of large intestine without perforation or abscess without bleeding; Z88.8 Allergy status to other drugs, medicaments and biological substances; Z82.49 Family history of ischemic heart disease and other diseases of the circulatory system; Z99.2 Dependence on renal dialysis
CPT/HCPCS: 36415; 43239; 45378; 80053; 83735; 84100; 84443; 85025; 86885; 86900; 86901; 87081; 93005; 97116; 97161; 99152; 99153; 99285; A4620; E1594; G0378; J2250; J3010; J7040; Q4081

== ENCOUNTER 2019-02-20 18:52 | Inpatient (IN) | payer MEDICARE, OTHER ==
[~2019-02-20] VITALS: Ht 180.3 cm; Wt 90.1 kg
[~2019-02-20 18:52] MED LIST changes: -CALC0.253 PO; -FERR325T28 PO; -SODI650T29 PO; -TERA5CAP4 PO
[2019-02-20 20:06] LABS: ALANINE AMINOTRANSFERASE 27 U/L (12-78); ALBUMIN/GLOBULIN RATIO 0.6 (1.1-1.5); ALKALINE PHOSPHATASE 97 IU/L (46-116); ANION GAP 19 (8-16); ASPARTATE AMINO TRANSFERASE 25 U/L (10-37); BILIRUBIN,TOTAL 0.5 MG/DL (0.1-1.0); BLOOD UREA NITROGEN 58 MG/DL (7-18); BUN/CREATININE RATIO 2.9 (5.4-32.0); CALCIUM 8.6 MG/DL (8.5-10.1); CHLORIDE 95 MMOL/L (99-107); CREATININE 19.73 MG/DL (0.60-1.10); GLUCOSE 139 MG/DL (70-104); SODIUM 139 MMOL/L (135-145); TOTAL CARBON DIOXIDE 25.4 MMOL/L (24-32); TOTAL PROTEIN 8.4 G/DL (6.4-8.2); eGFR 2 ML/MIN
[2019-02-20] MEDS ORDERED: SEVE800T8 PO (20:16)
--- NOTE | 2019-02-20 20:53 | NUR ---
MD NOTIFIED OF PT'S UNKNOWN ALLERGY TO A PAIN MEDICATION PER SON. PT AND SON UNABLE TO NAME THE MEDICATION HE WAS GIVEN AT [facility] FOR PAIN, THAT SENT HIM INTO CONVULSIONS. MD AWARE OF PT'S UNKNOWN ALLERGY
[2019-02-20 21:02] LABS: BASOPHILS # (AUTO) 0.3 X10'3 (0-0.2); BASOPHILS % (AUTO) 4.4 % (0-1); EOSINOPHILS # (AUTO) 0.1 X10'3 (0-0.9); EOSINOPHILS % (AUTO) 1.5 % (0-6); HEMATOCRIT 36.1 % (42.0-52.0); HEMOGLOBIN 11.7 g/dl (14.0-17.9); LYMPHOCYTES # (AUTO) 0.7 X10'3 (1.1-4.8); LYMPHOCYTES % (AUTO) 10.4 % (21-51); MEAN CORPUSCULAR HEMOGLOBIN 27.6 PG (27.0-31.0); MEAN CORPUSCULAR HGB CONC 32.5 g/dL (33.0-36.5); MEAN CORPUSCULAR VOLUME 84.9 FL (78-98); MEAN PLATELET VOLUME 6.9 FL (7.4-10.4); MONOCYTES # (AUTO) 1.1 X10'3 (0-0.9); MONOCYTES % (AUTO) 16.3 % (2-12); NEUTROPHILS # (AUTO) 4.6 X10'3 (1.8-7.7); NEUTROPHILS % (AUTO) 67.4 % (42-75); PLATELET COUNT 262 X10'3 (140-440); RED BLOOD COUNT 4.25 X10'6 (4.70-6.10); RED CELL DISTRIBUTION WIDTH 20.5 % (11.5-14.5); WHITE BLOOD COUNT 6.8 X10'3 (4.5-11.0)
[2019-02-20 21:08] LABS: TOTAL CELLS COUNTED 100
[2019-02-20 21:09] LABS: ANISOCYTOSIS 3+; PLATELET ESTIMATE NORMAL
[2019-02-20 21:10] LABS: LARGE PLATELETS FEW
[2019-02-20] MEDS ORDERED: ondansetron/PF 4mg/2ml inj IV PRN (21:55)
[2019-02-20] MEDS ORDERED: acetaminophen 325mg tablet PO PRN ×2 (21:55)
[2019-02-20] MEDS ORDERED: hydrALAZINE 20mg/ml inj. IV ONE (22:15)
--- NOTE | 2019-02-20 23:32 | NUR ---
PAGE TO DR DE LEÓN WITH REGARD TO PT POTASSIUM LEVEL AWAITING RETURN PHONE CALL
--- NOTE | 2019-02-20 23:39 | NUR ---
TALKED TO MD JUANY BAR ABOUT PT'S K AND BP POST HYDRALAZINE. MD AWARE OF PTS K OF 3.0, AND DOESN'T WANT TO TREAT IT DUE TO PT BEING A RENAL PT, AND WANTS TO SEE HOW THE PO ANTIHYPERTENSIVES WORK ON THE BP.
[2019-02-21] VITALS (7 sets, daily range): BP systolic 130–174; BP diastolic 86–108
[2019-02-21] MEDS ORDERED: LORazepam 2 mg/ml vial IV PRN (00:20)
--- NOTE | 2019-02-21 00:30 | NUR ---
pt on arrival had grand mal seizure--witnessed lasting 1 minute--post ictel for approximately 2 hours--md notified and pt given keppra iv prn order for prn ativan x's one for any further seizures
[2019-02-21] MEDS ORDERED: nitroGLYCERIN 1gm ointment UD TP ONE (00:45)
[2019-02-21] MEDS ORDERED: Levetiracetam-NS 500mg/100ml 100 ML IV STA (01:01)
--- NOTE | 2019-02-21 01:30 | NUR ---
pt blood presureremains elevated--md aware
--- NOTE | 2019-02-21 03:00 | NUR ---
pt continues being restless on rounds
--- NOTE | 2019-02-21 03:20 | NUR ---
unwitnessed fall--pt states he hit the back of his head vss--assisted back into bed--md notified--orders for ct head--and for sitter--ativan given prior to ct to facilitate pt holding still
[2019-02-21] MEDS ORDERED: LORazepam 2 mg/ml vial IM ONE (04:10)
[2019-02-21] MEDS ORDERED: LORazepam 2 mg/ml vial IV ONE (04:20)
--- NOTE | 2019-02-21 04:30 | NUR ---
pt sleeping at ths time
[2019-02-21 05:31] LABS: HEMOGLOBIN 11.7 g/dl (14.0-17.9); LYMPHOCYTES # (AUTO) 0.4 X10'3 (1.1-4.8); MEAN PLATELET VOLUME 6.8 FL (7.4-10.4)
[2019-02-21 05:33] LABS: BASOPHILS # (AUTO) 0.3 X10'3 (0-0.2); EOSINOPHILS % (AUTO) 0.1 % (0-6); HEMATOCRIT 35.3 % (42.0-52.0); LYMPHOCYTES % (AUTO) 5.3 % (21-51); MEAN CORPUSCULAR HEMOGLOBIN 27.8 PG (27.0-31.0); MEAN CORPUSCULAR HGB CONC 33.1 g/dL (33.0-36.5); MONOCYTES # (AUTO) 0.8 X10'3 (0-0.9); MONOCYTES % (AUTO) 9.7 % (2-12); NEUTROPHILS # (AUTO) 6.8 X10'3 (1.8-7.7); NEUTROPHILS % (AUTO) 80.9 % (42-75); PLATELET COUNT 281 X10'3 (140-440); RED BLOOD COUNT 4.21 X10'6 (4.70-6.10); RED CELL DISTRIBUTION WIDTH 20.3 % (11.5-14.5); WHITE BLOOD COUNT 8.4 X10'3 (4.5-11.0)
[2019-02-21 05:47] LABS: ALANINE AMINOTRANSFERASE 29 U/L (12-78); ALBUMIN 3.1 G/DL (3.4-5.0); ALBUMIN/GLOBULIN RATIO 0.6 (1.1-1.5); ALKALINE PHOSPHATASE 94 IU/L (46-116); ANION GAP 16 (8-16); ASPARTATE AMINO TRANSFERASE 23 U/L (10-37); BILIRUBIN,TOTAL 0.5 MG/DL (0.1-1.0); BLOOD UREA NITROGEN 61 MG/DL (7-18); CALCIUM 8.5 MG/DL (8.5-10.1); CHLORIDE 96 MMOL/L (99-107); GLUCOSE 110 MG/DL (70-104); PHOSPHORUS 7.7 MG/DL (2.3-4.5); SODIUM 138 MMOL/L (135-145)
[2019-02-21 05:49] LABS: CREATININE 20.35 MG/DL (0.60-1.10); eGFR 3 ML/MIN
[2019-02-21 05:55] LABS: POTASSIUM 2.8 MMOL/L (3.5-5.1)
[2019-02-21 07:21] LABS: ANISOCYTOSIS 3+; MICROCYTOSIS 1+; PLATELET ESTIMATE NORMAL; POIKILOCYTOSIS FEW; POLYCHROMASIA 1+
[2019-02-21] MEDS: furosemide 40mg tablet PO SCH (08:00)
[2019-02-21] MEDS: folic acid/vitamin B complex w/vitamin C 0.8mg tablet PO SCH (08:00)
[2019-02-21] MEDS: calcium acetate 667mg (PhosLO) capsule PO SCH ×3 (08:00→21:00)
[2019-02-21] MEDS: sevelamer carbonate 800mg tablet PO SCH ×3 (08:00→18:00)
[2019-02-21] MEDS: Levetiracetam-NS 500mg/100ml 100 ML IV SCH ×2 (08:27→19:43)
--- NOTE | 2019-02-21 08:29 | NUR ---
Note Peritoneal Dialysis Catheter Soiled, and Missing Sterile Protective Cap. Intact Line: Missing Sterile Cap, Soiled on exterior and at connectors. Access is covered for further protection.
[2019-02-21] MEDS ORDERED: hydrALAZINE 20mg/ml inj. IV PRN (08:30)
[2019-02-21] MEDS ORDERED: OLANZapine 5mg rapidly disint. tablet PO SCH (08:30)
[2019-02-21] MEDS ORDERED: furosemide 40mg/4ml inj IV SCH (08:30)
--- NOTE | 2019-02-21 09:02 | NUR ---
Swallow Evaluation: Mr. Varma is not awake and alert enough to do a bedside swallow evaluation at this time. The Modified Barium swallow test will be scheduled for Saturday as it needs to be preformed with the speech therapist.
[2019-02-21] MEDS ORDERED: VANCOMYCIN IV PRN (09:44)
[2019-02-21] MEDS ORDERED: DEXT IV PRN (09:44)
[2019-02-21] MEDS ORDERED: CEFTAZIDIME IV PRN (09:44)
[2019-02-21] MEDS ORDERED: PERIT DIALYSIS IV PRN (09:44)
--- NOTE | 2019-02-21 11:16 | NUR ---
Pt with low Eitan of 11. Per physical assessment pt with no edema or wounds. No nutrition intervention warranted at this time. Will continue to follow. Addendum: 02/21/19 at [address] Amended: Links added.
--- NOTE | 2019-02-21 11:25 | NUR ---
Daily Weight Bed Scale is needed as current bed is without scale.
[2019-02-21] MEDS: isosorbide dinitrate 30mg tablet PO SCH ×3 (13:00→21:00)
[2019-02-21] MEDS: potassium CL 10mEq/100ml bag 100 ML IV PRN ×4 (13:15→20:57)
[2019-02-21] MEDS: amLODIPine 5mg tablet PO SCH (14:43)
[2019-02-21] MEDS: hydrALAZINE 25 MG tablet PO SCH ×3 (14:44→14:57)
[2019-02-21] MEDS: carvedilol 6.25mg tablet PO SCH ×2 (14:44→20:00)
[2019-02-21] MEDS ORDERED: potassium bicarbonate/cit acid 25mEq tablet.effervescent PO SCH (14:55)
[2019-02-21] MEDS: OLANZAPINE 5 MG TABLET PO SCH (15:11)
[2019-02-21] MEDS: POTASSIUM BICARB 20meq eff tab 20 MEQ TABLET.EFF PO SCH (17:49)
--- NOTE | 2019-02-21 23:30 | NUR ---
Called Dr. Bc dalton pt heart rate is in the 160's to 170's. Per Dr. Hinojosa administered metoprolol 5mg IV.
[2019-02-21] MEDS ORDERED: metoprolol tartrate 1mg/ml inj IV ONE (23:40)
[2019-02-22] MEDS ORDERED: metoprolol tartrate 1mg/ml inj IV ONE (00:50)
[2019-02-22] MEDS ORDERED: LORazepam 2 mg/ml vial IV PRN (01:00)
[2019-02-22 02:00] VITALS: BP 77/51
[2019-02-22] MEDS ORDERED: acetaminophen 120MG suppository, rectal RC ONE (02:30)
[2019-02-22] MEDS ORDERED: albumin (Human) 5% 250ml 250 ML IV ONE (02:30)
[2019-02-22 05:11] LABS: ABG BASE EXCESS 0.4 mmol/L (-2.0-3.0); ABG OXYGEN SATURATION 95.6 % (95-98); ABG PCO2 (T) 36.9 mmHg (35.0-45.0); ABG PH (T) 7.434 (7.350-7.450); ABG PO2 (T) 81.1 mmHg (83-108); ALLEN'S TEST Positive; FCOHb 0.9 % (0.5-1.5); FLOW 2 L/min; FMetHb 0.1 % (0.3-1.12); FO2Hb 94.6 % (94-100); PATIENT TEMPERATURE 38.1; TOTAL HEMOGLOBIN 12.6 G/dl (14.0-17.9)
--- NOTE | 2019-02-22 06:39 | NUR ---
Problems reprioritized. Patient report given, questions answered & plan of care reviewed with ADDIS Gonsalez. Patient is NPO until passed bedside study. Pt cannot handle own secretions and required frequent suctioning.
[2019-02-22 06:43] LABS: EOSINOPHILS % (AUTO) 0 % (0-6); LYMPHOCYTES # (AUTO) 0.5 X10'3 (1.1-4.8); PLATELET COUNT 290 X10'3 (140-440)
[2019-02-22 06:46] LABS: BASOPHILS # (AUTO) 0.1 X10'3 (0-0.2); HEMATOCRIT 36.6 % (42.0-52.0); HEMOGLOBIN 12.2 g/dl (14.0-17.9); MEAN CORPUSCULAR HEMOGLOBIN 27.9 PG (27.0-31.0); MEAN CORPUSCULAR HGB CONC 33.2 g/dL (33.0-36.5); MEAN CORPUSCULAR VOLUME 83.9 FL (78-98); MONOCYTES % (AUTO) 15.2 % (2-12); NEUTROPHILS # (AUTO) 10.2 X10'3 (1.8-7.7); NEUTROPHILS % (AUTO) 79.8 % (42-75); RED BLOOD COUNT 4.36 X10'6 (4.70-6.10); WHITE BLOOD COUNT 12.8 X10'3 (4.5-11.0)
[2019-02-22 07:00] VITALS: BP 95/64
--- NOTE | 2019-02-22 07:00 | NUR ---
Spoke with Bc WALL. New order obtained for tlenol for temp. Also confirmed that I will be holding PO meds due to inability to swallow safely.
[2019-02-22] MEDS: furosemide 40mg tablet PO SCH (07:03)
[2019-02-22] MEDS: folic acid/vitamin B complex w/vitamin C 0.8mg tablet PO SCH (07:03)
[2019-02-22] MEDS: POTASSIUM BICARB 20meq eff tab 20 MEQ TABLET.EFF PO SCH ×3 (07:03→12:39)
[2019-02-22] MEDS: amLODIPine 5mg tablet PO SCH (07:03)
[2019-02-22] MEDS: isosorbide dinitrate 30mg tablet PO SCH ×3 (07:03→20:01)
[2019-02-22] MEDS: carvedilol 6.25mg tablet PO SCH ×2 (07:03→20:00)
[2019-02-22] MEDS: hydrALAZINE 25 MG tablet PO SCH ×3 (07:03→12:39)
[2019-02-22] MEDS: sevelamer carbonate 800mg tablet PO SCH ×3 (07:04→17:31)
[2019-02-22] MEDS: calcium acetate 667mg (PhosLO) capsule PO SCH ×3 (07:04→20:01)
[2019-02-22] MEDS: OLANZAPINE 5 MG TABLET PO SCH (07:04)
[2019-02-22] MEDS ORDERED: acetaminophen 650mg rectal suppository RC PRN (07:05)
[2019-02-22 07:09] LABS: ALANINE AMINOTRANSFERASE 26 U/L (12-78); ALBUMIN 2.9 G/DL (3.4-5.0); ALBUMIN/GLOBULIN RATIO 0.6 (1.1-1.5); ALKALINE PHOSPHATASE 91 IU/L (46-116); ANION GAP 18 (8-16); ASPARTATE AMINO TRANSFERASE 28 U/L (10-37); BILIRUBIN,TOTAL 0.5 MG/DL (0.1-1.0); BLOOD UREA NITROGEN 55 MG/DL (7-18); BUN/CREATININE RATIO 2.8 (5.4-32.0); CALCIUM 8.2 MG/DL (8.5-10.1); CHLORIDE 96 MMOL/L (99-107); CREATININE 19.48 MG/DL (0.60-1.10); GLUCOSE 132 MG/DL (70-104); MAGNESIUM 2.8 MG/DL (1.5-2.4); PHOSPHORUS 7.5 MG/DL (2.3-4.5); POTASSIUM 3.1 MMOL/L (3.5-5.1); SODIUM 138 MMOL/L (135-145); TOTAL PROTEIN 7.9 G/DL (6.4-8.2); eGFR 3 ML/MIN
[2019-02-22] MEDS: Levetiracetam-NS 500mg/100ml 100 ML IV SCH ×2 (07:23→19:54)
[2019-02-22 07:40] LABS: ANISOCYTOSIS 3+; MICROCYTOSIS 1+; PLATELET ESTIMATE NORMAL; POLYCHROMASIA 1+; TOTAL CELLS COUNTED 100
--- NOTE | 2019-02-22 07:46 | NUR ---
called Pallavi the HD RN and informed her that the PD bag looked extremely full and the machine said fill 7 of 7. The HD RN said she would be here in a little bit to take care of it.
[2019-02-22] MEDS ORDERED: normal saline 1000ml 1,000 ML IV ONE (08:20)
[2019-02-22 09:29] LABS: TROPONIN I 0.15 NG/ML (0.0-0.05)
--- NOTE | 2019-02-22 10:45 | NUR ---
Rm 3021, [facility]. Patient has sputum inducement order could you please call me regarding this. Thank you.
[2019-02-22 11:00] VITALS: BP 105/73
[2019-02-22] MEDS: cefepime 1GM in D5W 50mL 50 ML IV SCH (11:01)
[2019-02-22] MEDS: pantoprazole 40 MG vial IV SCH (11:01)
--- NOTE | 2019-02-22 12:06 | NUR ---
Spoke with Chauncey BORGES regarding troponin of 0.15. New orders obtained for 6 hour and 12 hour troponin. HR sustaining at 140/150s and MD aware. Will continue to monitor. PD got off 1 liter. Patient has woke up a few times and responded to voice, however speech is incomprehensible and does not make sense when I am able to understand him.
[2019-02-22 12:20] LABS: BF RBC COUNT 1 /CU MM; BF WBC COUNT 4 /CU MM (0-1000); BFAPPEAR CLEAR; BFCOLOR COLORLESS; BFVOLUME 50 ML
[2019-02-22] MEDS: potassium CL 10mEq/100ml bag 100 ML IV PRN ×4 (12:40→22:36)
[2019-02-22] MEDS ORDERED: sodium chloride 3% for inhalation 4ml nebule IH ONE (13:30)
[2019-02-22] MEDS ORDERED: albuterol 2.5 MG/3 ML nebule ONE (13:38)
--- NOTE | 2019-02-22 14:45 | NUR ---
Patient seems to be more alert and agitated this afternoon. RT was in to obtain a sputum sample and patient got aggressive. Patient was trying to stop the RT from suctioning and was aggressive again. Will continue to monitor.
[2019-02-22 15:00] VITALS: BP 104/80
--- NOTE | 2019-02-22 16:16 | NUR ---
Spoke with Desi Grossman regarding the patients EKG which resulted as STach. Instructed to continue to replace K, give ABX per MD order, watch temp and monitor patient. Will continue to monitor and provide carre per MD order. No new orders for HR in the `150s, MD aware.
[2019-02-22 18:00] VITALS: BP 120/64
--- NOTE | 2019-02-22 18:25 | NUR ---
Problems reprioritized. Patient report given, questions answered & plan of care reviewed with Xi MANCINI.
--- NOTE | 2019-02-22 18:31 | NUR ---
Patient in room PCU 3021. I have received report from Sunshine MANCINI and had the opportunity to ask questions and assume patient care.
[2019-02-22 18:47] LABS: POTASSIUM 3.3 MMOL/L (3.5-5.1); TROPONIN I 0.29 NG/ML (0.0-0.05)
[2019-02-22 22:00] VITALS: BP 126/73
--- NOTE | 2019-02-22 22:18 | NUR ---
Patient's heart rate sustaining in the 150's as it has been throughout the day since last night. MD on day shift was aware of this. instrumentation and control technician said that she believes this is actually A-flutter versus sinus tach. Bc notified of this and ordered 12 lead EKG but otherwise no new orders at this time.
[2019-02-23] VITALS (16 sets, daily range): BP systolic 109–152; BP diastolic 71–105
--- NOTE | 2019-02-23 00:40 | NUR ---
Tab Yancey informed that 12 hour troponin came back at 0.38 so they have trended up each time. No new orders received.
[2019-02-23] MEDS ORDERED: metoprolol tartrate 1mg/ml inj IV ONE (06:00)
--- NOTE | 2019-02-23 06:00 | NUR ---
Bc notified that patient's rate that had been sustaining in the 150's throughout the night is now occasionally hitting in the 160's although not sustaining there. He ordered a one time dose of Metoprolol 5mg IVP ONCE.
[2019-02-23 06:19] LABS: HEMATOCRIT 40.1 % (42.0-52.0); HEMOGLOBIN 13.2 g/dl (14.0-17.9); MEAN CORPUSCULAR HEMOGLOBIN 27.7 PG (27.0-31.0); MEAN CORPUSCULAR VOLUME 83.9 FL (78-98); MEAN PLATELET VOLUME 7.1 FL (7.4-10.4); PLATELET COUNT 286 X10'3 (140-440); RED BLOOD COUNT 4.78 X10'6 (4.70-6.10); RED CELL DISTRIBUTION WIDTH 20.7 % (11.5-14.5); WHITE BLOOD COUNT 12.4 X10'3 (4.5-11.0)
--- NOTE | 2019-02-23 06:28 | NUR ---
Problems reprioritized. Patient report given, questions answered & plan of care reviewed with Sunshine MANCINI.
[2019-02-23 06:58] LABS: ALANINE AMINOTRANSFERASE 33 U/L (12-78); ALBUMIN 2.6 G/DL (3.4-5.0); ALBUMIN/GLOBULIN RATIO 0.5 (1.1-1.5); ALKALINE PHOSPHATASE 93 IU/L (46-116); ANION GAP 17 (8-16); ASPARTATE AMINO TRANSFERASE 37 U/L (10-37); BILIRUBIN,TOTAL 0.5 MG/DL (0.1-1.0); BLOOD UREA NITROGEN 45 MG/DL (7-18); BUN/CREATININE RATIO 2.5 (5.4-32.0); CALCIUM 7.8 MG/DL (8.5-10.1); CHLORIDE 97 MMOL/L (99-107); CREATININE 18.22 MG/DL (0.60-1.10); GLUCOSE 122 MG/DL (70-104); MAGNESIUM 2.3 MG/DL (1.5-2.4); PHOSPHORUS 7.1 MG/DL (2.3-4.5); POTASSIUM 3.3 MMOL/L (3.5-5.1); SODIUM 138 MMOL/L (135-145); TOTAL CARBON DIOXIDE 23.9 MMOL/L (24-32); TOTAL PROTEIN 8.1 G/DL (6.4-8.2); eGFR 3 ML/MIN
--- NOTE | 2019-02-23 06:58 | NUR ---
Patient in room PCU 3021. I have received report from ADDIS Layne and had the opportunity to ask questions and assume patient care.
--- NOTE | 2019-02-23 07:18 | NUR ---
Patient HR up to the 160s, assistant casino shift manager RN notified MD and was given one time order of Metoprolol 5mg IV. Medication was administered and HR is now in the 140s, patient still seems to be in atrial flutter as previously reported.
[2019-02-23] MEDS: pantoprazole 40 MG vial IV SCH (07:27)
[2019-02-23] MEDS: Levetiracetam-NS 500mg/100ml 100 ML IV SCH ×2 (07:28→21:28)
[2019-02-23 07:30] LABS: TOTAL CELLS COUNTED 100
[2019-02-23 07:31] LABS: ANISOCYTOSIS 3+; PLATELET ESTIMATE NORMAL
[2019-02-23] MEDS: cefepime 1GM in D5W 50mL 50 ML IV SCH (07:31)
[2019-02-23] MEDS: isosorbide dinitrate 30mg tablet PO SCH ×3 (08:00→21:00)
[2019-02-23] MEDS: POTASSIUM BICARB 20meq eff tab 20 MEQ TABLET.EFF PO SCH ×4 (08:00→23:36)
[2019-02-23] MEDS: calcium acetate 667mg (PhosLO) capsule PO SCH ×3 (08:00→21:00)
[2019-02-23] MEDS: hydrALAZINE 25 MG tablet PO SCH ×4 (08:00→23:36)
[2019-02-23] MEDS: OLANZAPINE 5 MG TABLET PO SCH (08:00)
[2019-02-23] MEDS: sevelamer carbonate 800mg tablet PO SCH ×3 (08:00→18:00)
[2019-02-23] MEDS: amLODIPine 5mg tablet PO SCH (08:00)
[2019-02-23] MEDS: furosemide 40mg tablet PO SCH (08:00)
[2019-02-23] MEDS: folic acid/vitamin B complex w/vitamin C 0.8mg tablet PO SCH (08:00)
[2019-02-23] MEDS: carvedilol 6.25mg tablet PO SCH ×2 (08:00→20:00)
[2019-02-23] MEDS ORDERED: amiodarone 150mg/dext, iso-os 100 ML IV ONE (08:20)
--- NOTE | 2019-02-23 08:21 | NUR ---
Spoke with Dr. Camp regarding patient in 3021 and the barium swallow study being postponed until tomorrow due to scheduling conflicts. Also updated him regarding the patient still being in a flutter with HR in the 150s. New order obtained for amio. Will continue to monitor.
[2019-02-23] MEDS ORDERED: normal saline 1000ml 100 ML IV PRN (09:17)
[2019-02-23] MEDS ORDERED: heparin 1,000 units/ml 10ml inj HE ONE ×2 (09:25→10:25)
[2019-02-23] MEDS: amiodarone/D5 360MG/200ML BAG 200 ML IV SCH ×3 (09:29→20:28)
[2019-02-23] MEDS ORDERED: normal saline 1000ml 1,000 ML IV SCH (11:33)
[2019-02-23] MEDS ORDERED: midazolam 2 mg/2 ml injection IV PRN (11:35)
[2019-02-23] MEDS ORDERED: LIDOcaine 1%/PF 5ML 10 MG/ML VIAL SQ ONE (11:35)
[2019-02-23] MEDS ORDERED: fentaNYL/PF 50MCG/1 ML 2ML syringe IV PRN (11:35)
[2019-02-23] MEDS ORDERED: heparin 1,000 units/ml 10ml inj ICATH ONE (11:35)
[2019-02-23] MEDS ORDERED: fentaNYL/PF 50MCG/1 ML 2ML syringe ONE (12:09)
[2019-02-23] MEDS ORDERED: midazolam 2 mg/2 ml injection ONE (12:09)
[2019-02-23] MEDS ORDERED: heparin 1,000unit/ml 10ml vial 10 ML ONE (12:10)
[2019-02-23] MEDS ORDERED: LIDOcaine 1%/PF 5ML 10 MG/ML VIAL ONE (12:10)
--- NOTE | 2019-02-23 12:19 | NUR ---
Unable to obtain daily weight due to patient being on a bed without a bed scale and not being able to stand for the standing scale. Will continue to monitor and keep IV spread sheet updated for I and O.
--- NOTE | 2019-02-23 14:16 | NUR ---
Rm 3021, [facility]. Patient has a son who would like to speak with you regarding POA. Please call me, Thank you
--- NOTE | 2019-02-23 15:20 | NUR ---
Rm 3021, [facility]jo. Both sons are at bedside and would like to talk about the POA. Thank you.
--- NOTE | 2019-02-23 15:34 | NUR ---
PRESSURE ULCER EDUCATION: DEFINITION: A pressure ulcer is an area of skin that breaks down when you stay in one position too long. The constant pressure against the skin reduces the blood flow to that area and the affected tissue dies. CAUSES: "Being bedridden or in a wheelchair "Fragile skin "Having a chronic condition, such as diabetes or vascular disease "Inability to move certain parts of your body without assistance "Older age "Incontinence of urine or stool SYMPTOMS: "A reddened area that DOES NOT turn white when pressed on - this can be the beginning of a pressure ulcer "A blister, deep sore or a crater - these can be advanced pressure ulcers FIRST AID: "Relieve the pressure on this area "Keep the area clean and dry "Call your primary doctor if you see any of the above symptoms "DO NOT massage the area "DO NOT use a donut shaped or ring shaped pillow- these actually interfere with the blood flow and cause complications PREVENTION: "Check for pressure ulcers everyday "Change position at least every two hours to relieve pressure "Use items that help relieve pressure- pillows, sheepskin, foam padding, and powders. "Keep skin clean and dry "Eat healthy well balanced meals "Exercise daily IF YOU SEE ANY OF THESE SYMPTOMS WHILE IN THE HOSPITAL - TELL YOUR NURSE IMMEDIATELY. IF YOU SEE ANY OF THESE SYMPTOMS WHILE AT HOME OR HAVE ANY QUESTIONS OR CONCERNS ABOUT PRESSURE ULCERS - CALL YOUR PRIMARY DOCTOR IMMEDIATELY. Addendum: 02/23/19 at 1539 by Romi Leigh RN Amended: Links added.
--- NOTE | 2019-02-23 15:51 | NUR ---
Rm 3021, [facility]. Patient's sons are at bedside waitin to speak with you regarding his POA. Please call or come up. Thank you.
--- NOTE | 2019-02-23 18:14 | NUR ---
Patient in room U 3021. I have received report from ADDIS Layne and had the opportunity to ask questions and assume patient care. Addendum: 02/23/19 at 1820 by Ambika Sosa RN Problems reprioritized. Patient report given, questions answered & plan of care reviewed with ADDIS Layne.
--- NOTE | 2019-02-23 18:48 | NUR ---
[place] documentation: I have reviewed and agree with interventions, assessments performed and documented by Ambika MANCINI. [place] Medication Administration: For this medication-pass time frame, medication were reviewed, dispensed, administered and documented per hospital policy by Ambika MANCINI.
[2019-02-23] MEDS: lactobacillus rhamnosus 10,000 MMU CELLS/CAPSULE PO SCH (20:00)
[2019-02-24] VITALS (13 sets, daily range): BP systolic 109–148; BP diastolic 71–91
[2019-02-24] MEDS: amiodarone/D5 360MG/200ML BAG 200 ML IV SCH ×5 (02:48→20:44)
[2019-02-24 05:34] LABS: HEMATOCRIT 35.9 % (42.0-52.0); HEMOGLOBIN 11.6 g/dl (14.0-17.9); MEAN CORPUSCULAR HEMOGLOBIN 27.3 PG (27.0-31.0); MEAN CORPUSCULAR HGB CONC 32.3 g/dL (33.0-36.5); MEAN CORPUSCULAR VOLUME 84.7 FL (78-98); MEAN PLATELET VOLUME 7.2 FL (7.4-10.4); PLATELET COUNT 243 X10'3 (140-440); RED BLOOD COUNT 4.24 X10'6 (4.70-6.10); RED CELL DISTRIBUTION WIDTH 20.3 % (11.5-14.5); WHITE BLOOD COUNT 9.5 X10'3 (4.5-11.0)
[2019-02-24 06:16] LABS: ALANINE AMINOTRANSFERASE 17 U/L (12-78); ALBUMIN 2.1 G/DL (3.4-5.0); ALBUMIN/GLOBULIN RATIO 0.4 (1.1-1.5); ALKALINE PHOSPHATASE 85 IU/L (46-116); ANION GAP 13 (8-16); ASPARTATE AMINO TRANSFERASE 29 U/L (10-37); BILIRUBIN,TOTAL 0.4 MG/DL (0.1-1.0); BLOOD UREA NITROGEN 29 MG/DL (7-18); BUN/CREATININE RATIO 2.6 (5.4-32.0); CALCIUM 7.8 MG/DL (8.5-10.1); CHLORIDE 99 MMOL/L (99-107); GLUCOSE 99 MG/DL (70-104); PHOSPHORUS 5.8 MG/DL (2.3-4.5); POTASSIUM 3.9 MMOL/L (3.5-5.1); SODIUM 139 MMOL/L (135-145); TOTAL PROTEIN 7.2 G/DL (6.4-8.2); eGFR 5 ML/MIN
--- NOTE | 2019-02-24 06:34 | NUR ---
Problems reprioritized. Patient report given, questions answered & plan of care reviewed with Sunshine MANCINI.
--- NOTE | 2019-02-24 06:42 | NUR ---
Patient in room PCU 3021. I have received report from ADDIS Layne and had the opportunity to ask questions and assume patient care.
[2019-02-24 07:11] LABS: ANISOCYTOSIS 3+; PLATELET ESTIMATE NORMAL; TOTAL CELLS COUNTED 100
[2019-02-24 07:12] LABS: ELLIPTOCYTES FEW; POLYCHROMASIA FEW; SCHISTOCYTES FEW
[2019-02-24] MEDS: Levetiracetam-NS 500mg/100ml 100 ML IV SCH ×2 (07:18→19:55)
[2019-02-24] MEDS: cefepime 1GM in D5W 50mL 50 ML IV SCH (07:19)
[2019-02-24] MEDS: pantoprazole 40 MG vial IV SCH (07:19)
[2019-02-24] MEDS ORDERED: heparin 1,000unit/ml 10ml vial 10 ML IV ONE (07:59)
[2019-02-24] MEDS ORDERED: normal saline 1000ml 250 ML IV PRN (07:59)
[2019-02-24] MEDS: folic acid/vitamin B complex w/vitamin C 0.8mg tablet PO SCH (08:00)
[2019-02-24] MEDS: POTASSIUM BICARB 20meq eff tab 20 MEQ TABLET.EFF PO SCH ×2 (08:00→16:00)
[2019-02-24] MEDS: amLODIPine 5mg tablet PO SCH (08:00)
[2019-02-24] MEDS: furosemide 40mg tablet PO SCH (08:00)
[2019-02-24] MEDS: hydrALAZINE 25 MG tablet PO SCH ×2 (08:00→16:00)
[2019-02-24] MEDS: calcium acetate 667mg (PhosLO) capsule PO SCH ×3 (08:00→20:01)
[2019-02-24] MEDS ORDERED: epoetin 20,000 units/ml inj IV ONE (08:00)
[2019-02-24] MEDS: lactobacillus rhamnosus 10,000 MMU CELLS/CAPSULE PO SCH ×2 (08:00→20:00)
[2019-02-24] MEDS: isosorbide dinitrate 30mg tablet PO SCH ×3 (08:00→20:01)
[2019-02-24] MEDS: OLANZAPINE 5 MG TABLET PO SCH (08:00)
[2019-02-24] MEDS: sevelamer carbonate 800mg tablet PO SCH ×3 (08:00→16:53)
[2019-02-24] MEDS: carvedilol 6.25mg tablet PO SCH ×2 (08:00→20:00)
[2019-02-24] MEDS ORDERED: heparin 1,000 units/ml 10ml inj HE ONE ×2 (08:05)
--- NOTE | 2019-02-24 18:00 | NUR ---
Patient in room PCU 3021. I have received report from Sunshine Francis RN and Ambika MANCINI and had the opportunity to ask questions and assume patient care.
--- NOTE | 2019-02-24 18:13 | NUR ---
Problems reprioritized. Patient report given, questions answered & plan of care reviewed with Xi Arias.
--- NOTE | 2019-02-24 18:30 | NUR ---
Problems reprioritized. Patient report given, questions answered & plan of care reviewed with ADDIS Layne and ADDIS Roe.
--- NOTE | 2019-02-24 18:31 | NUR ---
[place] Medication Administration: For this medication-pass time frame, medication were reviewed, dispensed, administered and documented per hospital policy by Ambika MANCINI . [place] documentation: I have reviewed and agree with interventions, assessments performed and documented by Ambika MANCINI.
--- NOTE | 2019-02-24 18:44 | NUR ---
Problems reprioritized. Patient report given, questions answered & plan of care reviewed with Sunshine MANCINI. Addendum: 02/24/19 at 1845 by Xi Levy RN Patient in room [place] [id number]. I have received report from Sunshine MANCINI and had the opportunity to ask questions and assume patient care.
[2019-02-25] VITALS (9 sets, daily range): BP systolic 132–155; BP diastolic 69–96
[2019-02-25] MEDS: amiodarone/D5 360MG/200ML BAG 200 ML IV SCH ×4 (02:42→21:00)
[2019-02-25 05:00] LABS: HEMOGLOBIN 10.5 g/dl (14.0-17.9); MEAN CORPUSCULAR HEMOGLOBIN 27.3 PG (27.0-31.0); MEAN CORPUSCULAR HGB CONC 32.9 g/dL (33.0-36.5); MEAN CORPUSCULAR VOLUME 83.2 FL (78-98); MEAN PLATELET VOLUME 7.1 FL (7.4-10.4); PLATELET COUNT 225 X10'3 (140-440); RED BLOOD COUNT 3.85 X10'6 (4.70-6.10); RED CELL DISTRIBUTION WIDTH 20.6 % (11.5-14.5); WHITE BLOOD COUNT 7.7 X10'3 (4.5-11.0)
[2019-02-25 05:12] LABS: ALANINE AMINOTRANSFERASE 13 U/L (12-78); ALBUMIN 2.1 G/DL (3.4-5.0); ALBUMIN/GLOBULIN RATIO 0.5 (1.1-1.5); ALKALINE PHOSPHATASE 77 IU/L (46-116); ANION GAP 16 (8-16); ASPARTATE AMINO TRANSFERASE 21 U/L (10-37); BILIRUBIN,TOTAL 0.4 MG/DL (0.1-1.0); BLOOD UREA NITROGEN 48 MG/DL (7-18); BUN/CREATININE RATIO 3.5 (5.4-32.0); CALCIUM 7.5 MG/DL (8.5-10.1); CHLORIDE 99 MMOL/L (99-107); CREATININE 13.64 MG/DL (0.60-1.10); GLUCOSE 85 MG/DL (70-104); MAGNESIUM 2.2 MG/DL (1.5-2.4); PHOSPHORUS 6.8 MG/DL (2.3-4.5); POTASSIUM 3.3 MMOL/L (3.5-5.1); SODIUM 138 MMOL/L (135-145); TOTAL CARBON DIOXIDE 23.3 MMOL/L (24-32); TOTAL PROTEIN 6.7 G/DL (6.4-8.2); eGFR 4 ML/MIN
--- NOTE | 2019-02-25 05:12 | NUR ---
[place] documentation: I have reviewed and agree with all interventions, assessments performed and documented by Jyothi MANCINI. [place] Medication Administration: For this medication-pass time frame, all medication were reviewed, dispensed, administered and documented per hospital policy by Jyothi MANCINI.
[2019-02-25 06:08] LABS: BASOPHILS % (MANUAL) 1 % (0-1); EOSINOPHILS % (MANUAL) 1 % (0-6); LYMPHOCYTES % (MANUAL) 15 % (21-51); MONOCYTES % (MANUAL) 4 % (2-12); NEUTROPHILS % (MANUAL) 79 % (42-75)
[2019-02-25 06:09] LABS: TOTAL CELLS COUNTED 100
--- NOTE | 2019-02-25 06:14 | NUR ---
Problems reprioritized. Patient report given, questions answered & plan of care reviewed with Esmer MANCINI.
[2019-02-25 06:20] LABS: ANISOCYTOSIS 3+; ELLIPTOCYTES FEW; PLATELET ESTIMATE NORMAL; POLYCHROMASIA FEW
[2019-02-25 06:24] LABS: SCHISTOCYTES FEW
--- NOTE | 2019-02-25 06:49 | NUR ---
Patient in room PCU 3021. I have received report from Xi MANCINI/Jyothi MANCINI and had the opportunity to ask questions and assume patient care. All patient's needs met at this time.
[2019-02-25] MEDS: folic acid/vitamin B complex w/vitamin C 0.8mg tablet PO SCH (08:00)
[2019-02-25] MEDS: POTASSIUM BICARB 20meq eff tab 20 MEQ TABLET.EFF PO SCH ×4 (08:00→23:30)
[2019-02-25] MEDS: calcium acetate 667mg (PhosLO) capsule PO SCH ×3 (08:00→20:42)
[2019-02-25] MEDS: amLODIPine 5mg tablet PO SCH (08:00)
[2019-02-25] MEDS: lactobacillus rhamnosus 10,000 MMU CELLS/CAPSULE PO SCH ×2 (08:00→19:16)
[2019-02-25] MEDS: OLANZAPINE 5 MG TABLET PO SCH (08:00)
[2019-02-25] MEDS: carvedilol 6.25mg tablet PO SCH ×2 (08:00→19:16)
[2019-02-25] MEDS: furosemide 40mg tablet PO SCH (08:00)
[2019-02-25] MEDS: isosorbide dinitrate 30mg tablet PO SCH ×3 (08:00→20:42)
[2019-02-25] MEDS: hydrALAZINE 25 MG tablet PO SCH ×4 (08:00→23:30)
[2019-02-25] MEDS: sevelamer carbonate 800mg tablet PO SCH (08:00)
[2019-02-25] MEDS ORDERED: normal saline 1000ml 250 ML IV PRN (08:30)
[2019-02-25] MEDS ORDERED: epoetin 20,000 units/ml inj IV ONE (08:30)
[2019-02-25] MEDS ORDERED: heparin 1,000unit/ml 10ml vial 10 ML IV ONE (08:30)
[2019-02-25] MEDS ORDERED: heparin 1,000 units/ml 10ml inj HE ONE ×2 (08:35)
[2019-02-25] MEDS: Levetiracetam-NS 500mg/100ml 100 ML IV SCH ×2 (10:33→19:22)
[2019-02-25] MEDS: pantoprazole 40 MG vial IV SCH (10:33)
--- NOTE | 2019-02-25 18:23 | NUR ---
Initial: Patient admitted with ALOC, syncope. History of ESRD on PD. Pt found confused after PD treatment. Per MD note patient better after HD, had TDC placed. Patient seen by today, reports pt swallowing better and needing pureed foods and nectar thick liquids. Has renal diet order also. Patient has been NPO prior to diet advancement today. Visited patient at bedside, he reports he is hungry and wants to eat. Recommend: 1. continue renal, pureed diet with nectar thick liquid per recs 2. encourage PO Intake 3. weight per rx Addendum: 02/25/19 at [address] Amended: Links added.
--- NOTE | 2019-02-25 18:28 | NUR ---
Problems reprioritized. Patient report given, questions answered & plan of care reviewed with Kylah MANCINI. All patient's needs met at this time.
--- NOTE | 2019-02-25 18:30 | NUR ---
Patient in room PCU 3017. I have received report from Esmer MANCINI and had the opportunity to ask questions and assume patient care.
[2019-02-25] MEDS: sevelamer carbonate 0.8gm powder pkt PO SCH (19:16)
[2019-02-26] VITALS: BP 151/82
[2019-02-26 02:00] VITALS: BP 159/101
[2019-02-26] MEDS: amiodarone/D5 360MG/200ML BAG 200 ML IV SCH ×4 (02:27→15:12)
[2019-02-26] MEDS ORDERED: hydrALAZINE 20mg/ml inj. IV ONE (03:50)
[2019-02-26 04:00] VITALS: BP 157/98
[2019-02-26 06:00] VITALS: BP 136/69
--- NOTE | 2019-02-26 06:00 | NUR ---
Patient in room PCU 3017. I have received report from Kylah MANCINI and had the opportunity to ask questions and assume patient care.
--- NOTE | 2019-02-26 06:10 | NUR ---
Problems reprioritized. Patient report given, questions answered & plan of care reviewed with Teresita MANCINI.
[2019-02-26] MEDS: isosorbide dinitrate 30mg tablet PO SCH ×2 (07:49→13:00)
[2019-02-26] MEDS: lactobacillus rhamnosus 10,000 MMU CELLS/CAPSULE PO SCH (07:49)
[2019-02-26] MEDS: folic acid/vitamin B complex w/vitamin C 0.8mg tablet PO SCH (07:53)
[2019-02-26] MEDS: amLODIPine 5mg tablet PO SCH (07:53)
[2019-02-26] MEDS: furosemide 40mg tablet PO SCH (07:54)
[2019-02-26] MEDS: carvedilol 6.25mg tablet PO SCH (07:54)
[2019-02-26] MEDS: OLANZAPINE 5 MG TABLET PO SCH (07:54)
[2019-02-26] MEDS: calcium acetate 667mg (PhosLO) capsule PO SCH ×2 (07:54→13:00)
[2019-02-26] MEDS: POTASSIUM BICARB 20meq eff tab 20 MEQ TABLET.EFF PO SCH ×2 (07:55→16:00)
[2019-02-26] MEDS: hydrALAZINE 25 MG tablet PO SCH ×2 (07:56→16:00)
[2019-02-26] MEDS: Levetiracetam-NS 500mg/100ml 100 ML IV SCH (08:06)
[2019-02-26] MEDS: pantoprazole 40 MG vial IV SCH (08:06)
[2019-02-26] MEDS: sevelamer carbonate 0.8gm powder pkt PO SCH ×3 (08:18→17:43)
[2019-02-26 11:00] VITALS: BP 120/80
--- NOTE | 2019-02-26 18:15 | NUR ---
Per MD orders, patient stable for discharge. Discharge instructions and prescriptions reviewed with patient and son at bedside and all questions/concerns addressed to satisfaction. Discontinued tele monitoring and PIV; cannula intact. Unable to locate clothing; provided with clothing from hospital. All other personal belongings sent with patient including medications stored in pharmacy. Son provided with community resources. Transferred to private vehicle via wheelchair accompanied by son.
[2019-02-27 07:13] LABS: HBSAG SCREEN Negative (Negative)
== END 2019-02-26 18:05 | disposition home or self-care (01) | DRG 871 ==
LOC: ER 18:52 → ED HOLD 21:53 → PCU 3S 23:50
PROVIDERS: ADMIT Internal Medicine Critical Care Medicine; ATTEND Internal Medicine Critical Care Medicine
PROC: 3E1M39Z Irrigation of Peritoneal Cavity using Dialysate, Percutaneous Approach (ICD-10-PCS; 2019-02-21)
PROC: 3E1M39Z Irrigation of Peritoneal Cavity using Dialysate, Percutaneous Approach (ICD-10-PCS; 2019-02-22)
PROC: 0JH63XZ Insertion of Tunneled Vascular Access Device into Chest Subcutaneous Tissue and Fascia, Percutaneous Approach (ICD-10-PCS; principal; 2019-02-23)
PROC: 02HV33Z Insertion of Infusion Device into Superior Vena Cava, Percutaneous Approach (ICD-10-PCS; 2019-02-23)
PROC: B548ZZA Ultrasonography of Superior Vena Cava, Guidance (ICD-10-PCS; 2019-02-23)
PROC: 5A1D70Z Performance of Urinary Filtration, Intermittent, Less than 6 Hours Per Day (ICD-10-PCS; 2019-02-23)
PROC: 5A1D70Z Performance of Urinary Filtration, Intermittent, Less than 6 Hours Per Day (ICD-10-PCS; 2019-02-25)
DX: A41.9 Sepsis, unspecified organism (principal); G93.41 Metabolic encephalopathy; N18.6 End stage renal disease; I48.92 Unspecified atrial flutter; B19.20 Unspecified viral hepatitis C without hepatic coma; E87.6 Hypokalemia; G40.909 Epilepsy, unspecified, not intractable, without status epilepticus; I95.9 Hypotension, unspecified; R55 Syncope and collapse; G47.419 Narcolepsy without cataplexy; I15.0 Renovascular hypertension; K74.60 Unspecified cirrhosis of liver; R29.6 Repeated falls; Z82.49 Family history of ischemic heart disease and other diseases of the circulatory system; Z99.2 Dependence on renal dialysis; Z79.899 Other long term (current) drug therapy; Z88.8 Allergy status to other drugs, medicaments and biological substances
CPT/HCPCS: 36415; 36558; 36600; 70450; 71045; 74230; 76937; 77001; 80053; 82570; 82803; 82945; 82948; 83605; 83735; 84100; 84132; 84484; 84540; 85018; 85025; 87040; 87070; 87081; 87340; 89051; 92508; 93005; 94640; 94760; 97110; 97116; 97161; 97530; 99152; 99153; 99285; A4218; A9270; C1750; C1769; C1894; C9113; E1594; G0257; G0378; J0282; J0360; J0692; J0713; J1644; J1953; J2060; J2250; J2405; J3010; J3370; J3480; J3490; J7030; P9045; Q4081

== ENCOUNTER 2019-05-06 07:54 | Day surgery (SDC) | payer OTHER ==
[2019-05-06] VITALS (9 sets, daily range): BP systolic 124–136; BP diastolic 77–94
[~2019-05-06] VITALS: Ht 182.9 cm; Wt 78.8 kg
[~2019-05-06 07:54] MED LIST changes: -CARV6.253 PO; +GABA-530 PO; +cefazolin/dext.iso 2gm/100ml 100 ML IV ONE; +famotidine 10mg tablet PO ONE; +ringers solution, lacted 1,000 ML IV SCH
[2019-05-06 09:29] LABS: BASOPHILS % (AUTO) 0.9 % (0-1); EOSINOPHILS # (AUTO) 0.3 X10'3 (0-0.9); EOSINOPHILS % (AUTO) 6.6 % (0-6); LYMPHOCYTES # (AUTO) 1.1 X10'3 (1.1-4.8); LYMPHOCYTES % (AUTO) 20.6 % (21-51); MEAN CORPUSCULAR HGB CONC 32.9 g/dL (33.0-36.5); MEAN CORPUSCULAR VOLUME 85.3 FL (78-98); MEAN PLATELET VOLUME 8.3 FL (7.4-10.4); MONOCYTES # (AUTO) 0.7 X10'3 (0-0.9); MONOCYTES % (AUTO) 13.6 % (2-12); NEUTROPHILS % (AUTO) 58.3 % (42-75); PRE OP HEMATOCRIT 38.3 % (42.0-52.0); PRE OP HEMOGLOBIN 12.6 g/dL (14.0-17.9); PRE OP PLATELET COUNT 160 X10'3 (140-440); RED BLOOD COUNT 4.48 X10'6 (4.70-6.10); RED CELL DISTRIBUTION WIDTH 23.2 % (11.5-14.5)
[2019-05-06 09:57] LABS: ALBUMIN 3.4 G/DL (3.4-5.0); ALBUMIN/GLOBULIN RATIO 0.9 (1.1-1.5); ALKALINE PHOSPHATASE 73 IU/L (46-116); BLOOD UREA NITROGEN 41 MG/DL (7-18); BUN/CREATININE RATIO 5.7 (5.4-32.0); CALCIUM 7.9 MG/DL (8.5-10.1); CHLORIDE 103 MMOL/L (99-107); CREATININE 7.14 MG/DL (0.60-1.10); PRE OP ALT 18 U/L (30-65); PRE OP ANION GAP 11 (8-16); PRE OP AST 22 U/L (10-37); PRE OP BILIRUB, TOTAL 0.4 MG/DL (0.0-1.0); PRE OP GLUCOSE 87 MG/DL (70-104); PRE OP SODIUM 139 MMOL/L (135-145); TOTAL CARBON DIOXIDE 24.8 MMOL/L (24-32); eGFR 9 ML/MIN
[2019-05-06 09:58] LABS: PRE OP POTASSIUM 5.3 MMOL/L (3.4-5.1)
[2019-05-06] MEDS ORDERED: mupirocin 2% ointment 22GM ONE (10:32)
[2019-05-06] MEDS ORDERED: BUPIVAcaine/PF 2.5 mg/ml (0.25%) 30ml vial ONE (10:32)
[2019-05-06] MEDS ORDERED: ceFAZolin 1000mg inj ONE (10:32)
[2019-05-06 11:28] LABS: ANISOCYTOSIS 3+; ELLIPTOCYTES FEW; HYPOCHROMASIA 1+; PLATELET ESTIMATE NORMAL; POLYCHROMASIA FEW; SCHISTOCYTES FEW; TEAR DROP CELLS FEW
[2019-05-06] MEDS ORDERED: midazolam 2 mg/2 ml injection ONE (11:50)
[2019-05-06] MEDS ORDERED: fentaNYL/PF 50MCG/1 ML 2ML syringe ONE (11:50)
[2019-05-06] MEDS ORDERED: propofol inj 20 ML IV ONE ×2 (11:54)
[2019-05-06] MEDS ORDERED: bacitracin 15gm ointment TP ONE (12:00)
--- NOTE | 2019-05-06 12:10 | NUR ---
Received from OR via BED, accompanied by Anesthesiologist --CHRISTIANA - and report given by Anesthesiolgist. PATIENT A&OX4, DENIES PAIN, V/S WNL, NEUROVASCULAR CHECKS INTACT, 20G PIV RUE, SCD ON, BANDAID TO ABDOMEN CDI, 2 LUMEN DIALYSIS CATH TO RIGHT CHEST,
[2019-05-06] MEDS ORDERED: normal saline 1000ml 1,000 ML IV SCH (12:17)
[2019-05-06] MEDS ORDERED: ondansetron/PF 4mg/2ml inj IV PRN (12:20)
[2019-05-06] MEDS ORDERED: morphine 4 MG/ML inj SYRINge IV PRN (12:20)
[2019-05-06] MEDS ORDERED: proCHLORperazine 10 MG/2 ml inj IV PRN (12:20)
[2019-05-06] MEDS ORDERED: fentaNYL/PF 50MCG/1 ML 2ML syringe IV PRN (12:20)
--- NOTE | 2019-05-06 13:10 | NUR ---
PATIENT A&OX4, DENIES PAIN, V/S WNL, NEUROVASCULAR CHECKS INTACT, 20G PIV RUE D/C, SCD OFF, BANDAID TO ABDOMEN CDI, 2 LUMEN DIALYSIS CATH TO RIGHT CHEST, I HAVE REVIEWED D/C INSTRUCTIONS WITH PATIENT AND FAMILY AND THEY HAVE VERBALIZED UNDERSTANDING. PATIENT D/C HOME WITH ALL BELONGINGS AND FAMILY GAVE TRANSPORT HOME.
== END 2019-05-06 13:10 | disposition home or self-care (01) ==
LOC: PAS 07:54
PROVIDERS: ATTEND Surgery
DX: Z49.02 Encounter for fitting and adjustment of peritoneal dialysis catheter (principal); I12.0 Hypertensive chronic kidney disease with stage 5 chronic kidney disease or end stage renal disease; N18.6 End stage renal disease; K74.60 Unspecified cirrhosis of liver; N40.0 Benign prostatic hyperplasia without lower urinary tract symptoms; E78.5 Hyperlipidemia, unspecified; M19.90 Unspecified osteoarthritis, unspecified site; G47.33 Obstructive sleep apnea (adult) (pediatric); D64.9 Anemia, unspecified; F17.210 Nicotine dependence, cigarettes, uncomplicated; Z79.899 Other long term (current) drug therapy; Z86.19 Personal history of other infectious and parasitic diseases; Z90.49 Acquired absence of other specified parts of digestive tract; Z98.890 Other specified postprocedural states
CPT/HCPCS: 36415; 49422; 80053; 85025; 93005; J0690; J2250; J2704; J3010; J3490; J7030; A4618; J7120

== ENCOUNTER 2019-10-28 05:31 | Day surgery (SDC) | payer OTHER ==
[2019-10-21 15:58] LABS: BASOPHILS % (AUTO) 0.6 % (0-1); EOSINOPHILS # (AUTO) 0.3 X10'3 (0-0.9); EOSINOPHILS % (AUTO) 3.8 % (0-6); LYMPHOCYTES # (AUTO) 1.2 X10'3 (1.1-4.8); LYMPHOCYTES % (AUTO) 16.4 % (21-51); MEAN CORPUSCULAR HEMOGLOBIN 30.3 PG (27.0-31.0); MEAN CORPUSCULAR HGB CONC 33.6 g/dL (33.0-36.5); MEAN CORPUSCULAR VOLUME 90.2 FL (78-98); MEAN PLATELET VOLUME 7.9 FL (7.4-10.4); MONOCYTES # (AUTO) 0.8 X10'3 (0-0.9); MONOCYTES % (AUTO) 11.3 % (2-12); NEUTROPHILS % (AUTO) 67.9 % (42-75); PRE OP HEMATOCRIT 41.1 % (42.0-52.0); PRE OP HEMOGLOBIN 13.8 g/dL (14.0-17.9); PRE OP PLATELET COUNT 178 X10'3 (140-440); RED BLOOD COUNT 4.55 X10'6 (4.70-6.10)
[2019-10-21 16:01] LABS: ALBUMIN 3.8 G/DL (3.4-5.0); ALBUMIN/GLOBULIN RATIO 0.8 (1.1-1.5); ALKALINE PHOSPHATASE 80 IU/L (46-116); BLOOD UREA NITROGEN 54 MG/DL (7-18); BUN/CREATININE RATIO 5.3 (5.4-32.0); CALCIUM 9.5 MG/DL (8.5-10.1); CHLORIDE 100 MMOL/L (99-107); CREATININE 10.14 MG/DL (0.60-1.10); PRE OP ALT 12 U/L (30-65); PRE OP ANION GAP 10 (8-16); PRE OP AST 9 U/L (10-37); PRE OP BILIRUB, TOTAL 0.3 MG/DL (0.0-1.0); PRE OP GLUCOSE 101 MG/DL (70-104); PRE OP POTASSIUM 4.5 MMOL/L (3.4-5.1); PRE OP SODIUM 138 MMOL/L (135-145); TOTAL CARBON DIOXIDE 27.8 MMOL/L (24-32); TOTAL PROTEIN 8.3 G/DL (6.4-8.2); eGFR 6 ML/MIN
[~2019-10-28] VITALS: Ht 182.9 cm; Wt 78.4 kg
[~2019-10-28 05:31] MED LIST changes: -FURO80TA3 PO; -GABA-530 PO; -MULTIVITAMIN PO; -cefazolin/dext.iso 2gm/100ml 100 ML IV ONE; -famotidine 10mg tablet PO ONE; +famotidine 20mg tablet PO ONE
[2019-10-28 05:35] VITALS: BP 123/80
[2019-10-28] MEDS ORDERED: cefazolin/dext.iso 2gm/50ml 50 ML IV ONE (06:00)
[2019-10-28] MEDS ORDERED: BUPIVAcaine/PF 2.5mg/ml (0.25%) 10ml vial ONE (06:43)
[2019-10-28] MEDS ORDERED: LIDOcaine 1% W/epiNEPHrine 1:200,000 10ml vial ONE (06:43)
[2019-10-28] MEDS ORDERED: heparin 10,000 units/1 ML INJ ONE (06:43)
[2019-10-28] MEDS ORDERED: propofol inj 20 ML IV ONE (07:54)
[2019-10-28] MEDS ORDERED: fentaNYL/PF 50MCG/1 ML 2ML syringe ONE (07:54)
[2019-10-28] MEDS ORDERED: midazolam 2 mg/2 ml injection ONE (07:54)
[2019-10-28] MEDS ORDERED: ePHEDrine 50MG/ML INJ. ONE (07:54)
[2019-10-28] MEDS ORDERED: ringers solution, lacted 1,000 ML IV SCH (07:59)
[2019-10-28] MEDS ORDERED: morphine 4 MG/ML inj SYRINge IV PRN (08:00)
[2019-10-28] MEDS ORDERED: meperidine/PF 25mg/ml syringe IV PRN ×3 (08:00)
[2019-10-28] MEDS ORDERED: ondansetron/PF 4mg/2ml inj IV PRN (08:00)
[2019-10-28] MEDS ORDERED: proCHLORperazine 10 MG/2 ml inj IV PRN (08:00)
[2019-10-28] MEDS ORDERED: morphine 2 MG/ML inj. syringe IV PRN (08:00)
[2019-10-28 09:53] VITALS: BP 162/97
[2019-10-28 10:00] VITALS: BP 139/88
[2019-10-28 10:10] VITALS: BP 139/88
[2019-10-28 10:20] VITALS: BP 125/78
[2019-10-28 10:30] VITALS: BP 132/82
--- NOTE | 2019-10-28 10:53 | NUR ---
Pt discharged to vehicle without incident by wheelchair. IV dc'd. Pt and son (by phone) verbalized understanding of all DC instructions. All belongings returned to patient. Pain meds already called into pharmacy. Dressing remains CDI. Pain tolerable at 4/10.
== END 2019-10-28 10:53 | disposition home or self-care (01) ==
LOC: PAS 05:31
PROVIDERS: ATTEND Surgery
DX: I12.0 Hypertensive chronic kidney disease with stage 5 chronic kidney disease or end stage renal disease (principal); N18.6 End stage renal disease; N40.0 Benign prostatic hyperplasia without lower urinary tract symptoms; K74.60 Unspecified cirrhosis of liver; E78.5 Hyperlipidemia, unspecified; G47.30 Sleep apnea, unspecified; Z98.890 Other specified postprocedural states; Z79.899 Other long term (current) drug therapy; Z11.59 Encounter for screening for other viral diseases; F17.210 Nicotine dependence, cigarettes, uncomplicated; Z82.49 Family history of ischemic heart disease and other diseases of the circulatory system
CPT/HCPCS: 36415; 36821; 80053; 82948; 85025; 87635; 93005; C9803; J1644; J2175; J2250; J2270; J2704; J3010; J3490; J7040; J7120; U0003; A4215; A4618; A7000